=== PATIENT | male | born 1965 | race Caucasian/White ===

== ENCOUNTER 2018-08-18 19:56 | Inpatient (IN) | payer SELFPAY ==
[2018-08-18] VITALS (7 sets, daily range): BP systolic 103–154; BP diastolic 71–92; PULSE 71–95; RESP 18–24; TEMP 37–38; O2SAT 95–97; BMI 33.4
--- NOTE | 2018-08-18 20:07 | DI.CT.S_ITS ---
PROCEDURE: CT HEAD/BRAIN WO CON INDICATIONS: fall 30 ft from tree TECHNIQUE: Noncontrast 4.5 mm thick angled axial sections acquired from the foramen magnum to the vertex, with coronal and sagittal reformats. For radiation dose reduction, the following was used: automated exposure control, adjustment of mA and/or kV according to patient size. COMPARISON: None. FINDINGS: Image quality: Excellent. CSF spaces: Basal cisterns are patent. No extra-axial fluid collections. Ventricles are normal in size and shape. Brain: No midline shift. No intracranial masses or hemorrhage. Fields-white matter interface is normal. Skull and face: Calvarium and visualized facial bones are intact, without suspicious lesions. Sinuses: Visualized sinuses and mastoids are clear. IMPRESSION: No acute intracranial disease process. Dictated by: Jes Armijo MD, PhD on 08/18/2018 at 21:03 Approved by: Jes Armijo MD, PhD on 08/18/2018 at 21:05
--- NOTE | 2018-08-18 20:07 | DI.CT.S_ITS ---
PROCEDURE: CT CERVICAL SPINE WO CON INDICATIONS: fall 30 ft from tree TECHNIQUE: Noncontrast 3 mm thick sections acquired from the skull base to the T4 level. Sagittal and coronal reformats were then constructed. For radiation dose reduction, the following was used: automated exposure control, adjustment of mA and/or kV according to patient size. COMPARISON: None. FINDINGS: Image quality: Excellent. Bones: No acute fractures or dislocations. Patient status post ORIF of left mandible fracture. Visualized superior ribs are intact. Soft tissues: Prevertebral soft tissues are normal in thickness. No paravertebral hematomas. No apical pneumothoraces. IMPRESSION: No fracture. No acute osseous lesion. If there are persistent symptoms or continued clinical suspicion for pathology, then MRI should be considered for further evaluation. Dictated by: Jes Armijo MD, PhD on 08/18/2018 at 21:00 Approved by: Jes Armijo MD, PhD on 08/18/2018 at 21:03
--- NOTE | 2018-08-18 20:07 | DI.RAD.S_ITS ---
PROCEDURE: XR CHEST 1V INDICATIONS: fall 30ft from tree TECHNIQUE: One view of the chest was acquired. COMPARISON: None. FINDINGS: Surgical changes and devices: None. Lungs and pleura: Lungs are clear. No pleural effusions or pneumothorax. Mediastinum: Mediastinal contours appear normal. Heart size is normal. Bones and chest wall: No suspicious bony lesions. Overlying soft tissues appear unremarkable. IMPRESSION: No acute cardiopulmonary disease process. Dictated by: Jes Armijo MD, PhD on 08/18/2018 at 20:36 Approved by: Jes Armijo MD, PhD on 08/18/2018 at 20:36
--- NOTE | 2018-08-18 20:07 | DI.CT.S_ITS ---
PROCEDURE: CT CHEST ABD PEL W CON INDICATIONS: fall 30 ft from tree TECHNIQUE: After the administration of intravenous contrast, 5 mm thick sections acquired from the lung apices to the symphysis. 2.5 mm thick coronal and sagittal reformats were acquired. Additional 7 mm thick coronal maximum intensity projection (MIP) reformats acquired through the lungs. Optional 10-minute delayed imaging may be performed from the kidneys to the bladder. For radiation dose reduction, the following was used: automated exposure control, adjustment of mA and/or kV according to patient size. COMPARISON: None. FINDINGS: Image quality: Excellent. CHEST: Lungs: No pulmonary contusions or lacerations. Scattered atelectasis noted in the lungs. No pneumothorax or hemothorax. Central and peripheral airways appear patent and normal in caliber. Mediastinum: No mediastinal hematomas. Heart size is normal. No pericardial effusion. Thoracic aorta and pulmonary arteries demonstrate normal size and enhancement. No mediastinal or hilar adenopathy. Esophagus is normal in caliber. No hiatal hernia. Chest wall: No rib fractures. No subcutaneous emphysema. No axillary or supraclavicular adenopathy. Thyroid gland is within normal limits. ABDOMEN: Solid organs: Liver is normal in size and enhancement, without lacerations. Diffuse fatty infiltration of the liver. Gallbladder is within normal limits. Biliary system is non-dilated. Pancreas enhances normally, without transection. Spleen is normal in size and enhancement, without lacerations. No adrenal hematomas. Both kidneys enhance normally, without hydronephrosis or lacerations. Peritoneum and bowel: No free fluid or air. Unenhanced bowel loops demonstrate normal wall thickness and caliber. Nodes and vessels: No retroperitoneal or mesenteric adenopathy. Aorta and inferior vena cava are normal in size and enhancement. Miscellaneous: No ventral hernias. PELVIS: Genitourinary: Bladder wall thickness is normal. Miscellaneous: No inguinal hernias or adenopathy. Bones: Pelvic ring and hip joints appear intact. Acute L1 and L2 compression fractures are noted. Fracture lucencies involving anterior and middle columns. L1 fracture lucencies extend into the right pedicle and the posterior cortex. Spine degenerative disease and facet arthropathy noted. IMPRESSION: 1. L1 and L2 compression fractures. 2. No evidence of solid organ laceration. 3. No pulmonary contusion or pneumothorax. Dictated by: Jes Armijo MD, PhD on 08/18/2018 at 21:05 Approved by: Jes Armijo MD, PhD on 08/18/2018 at 21:14
--- NOTE | 2018-08-18 20:07 | DI.RAD.S_ITS ---
PROCEDURE: XR PELVIS 1-2V INDICATIONS: fall 30 ft from tree TECHNIQUE: One view(s) of the pelvis acquired. COMPARISON: None. FINDINGS: Bones: No fractures or dislocations. No suspicious bony lesions. Soft tissues: Visualized bowel gas pattern is normal. No suspicious soft tissue calcifications. IMPRESSION: No fracture. No osseous lesion. If there are persistent symptoms or clinical suspicion for pathology, then repeat radiographs or advanced imaging (CT, MRI or bone scan) should be considered for further evaluation. Dictated by: Jes Armijo MD, PhD on 08/18/2018 at 20:36 Approved by: Jes Armijo MD, PhD on 08/18/2018 at 20:37
--- NOTE | 2018-08-18 20:08 | DI.RAD.S_ITS ---
PROCEDURE: XR WRIST LT MIN 3V INDICATIONS: fall deformity TECHNIQUE: 4 views of the wrist were acquired. COMPARISON: None. FINDINGS: Bones: Linear lucency traverses the mid/proximal scaphoid. Scaphoid view: Linear lucency traverses the mid/proximal scaphoid. Soft tissues: No suspicious soft tissue calcifications. IMPRESSION: Minimally displaced scaphoid fracture. Concordant with preliminary interpretation. Dictated by: Tyrell Mcgovern M.D. on 08/19/2018 at 7:19 Approved by: Tyrell Mcgovern M.D. on 08/19/2018 at 7:20
--- NOTE | 2018-08-18 20:15 | ED_ITS ---
HPI - Trauma General Chief Complaint: Trauma Stated Complaint: Fall 30ft from tree Time Seen by Provider: 08/18/18 20:06 Source: patient and family Mode of arrival: wheelchair Limitations: no limitations History of Present Illness HPI narrative: Patient is a 53-year-old male who presents after a 20-30ft fall from a tree at last evening. 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 No loss of consciousness. He says he went to bed immediately. Complaining more today of left wrist pain and some mild back pain. He is having significant pain while walking but is able to walk. No urinary incontinence. He denies any anti-platelet or anticoagulation medication. He denies any nausea persistent vomiting. MD complaint: fall Onset (ago): day(s) (1) Loss of Consciousness: no Severity: moderate Related Data Home Medications Medication Instructions Recorded Confirmed No Known Home Medications 08/18/18 08/18/18 Allergies Allergy/AdvReac Type Severity Reaction Status Date / Time No Known Drug Allergies Allergy Verified 08/18/18 20:34 Review of Systems Review of Systems ROS Unobtainable: All systems reviewed & are unremarkable except as noted in HPI and below Constitutional Denies chills, Denies fever(s), Denies lethargy and Denies weakness Eyes Denies change in vision, Denies eye discharge, Denies irritation and Denies loss of vision ENT Ears, Nose, Mouth, and Throat: Denies vertigo Cardiovascular Denies chest pain, Denies syncope, Denies irregular heart rhythm, Denies lightheadedness, Denies palpitations, Denies dyspnea, Denies dyspnea on exertion and Denies orthopnea Respiratory Denies cough, Denies dyspnea, Denies dyspnea on exertion and Denies wheezing Gastrointestinal Gastrointestinal: Denies abdominal pain, Denies change in bowel habits, Denies diarrhea, Denies nausea and Denies vomiting Genitourinary Denies hematuria, Denies flank pain, Denies urinary incontinence and Denies urinary urgency Musculoskeletal Reports as per HPI Integumentary/Breasts Denies new lesions and Denies skin pain Neurologic Denies confusion, Denies vertigo, Denies syncope, Denies loss of vision and Denies weakness Psychiatric Denies confusion Endocrine Denies palpitations Allergic/Immunologic Denies wheezing [facility] Medical History Alcohol dependence (Chronic) Marijuana use, continuous (Chronic) Osteoarthritis, multiple sites (Chronic) Presence of mandibular implant (Chronic) Surgical History S/P appendectomy (Acute) Family History (Updated 08/19/18 @ 02:24 by STUART Lazaro) Mother Heart disease Ovarian cancer Breast cancer Father No known health problems Brother Heart disease Myocardial infarction Brother Gunshot injury Social History household members: none Smoking Status: Current some day smoker alcohol intake: current Family History Mother Heart disease Ovarian cancer Breast cancer Father No known health problems Brother Heart disease Myocardial infarction Brother Gunshot injury Social History household members: none Smoking Status: Current some day smoker alcohol intake: current Exam Initial Vital Signs Initial Vital Signs: Vital Signs Temperature 100.4 F H 08/18/18 20:05 Pulse Rate 80 08/18/18 20:05 Respiratory Rate 24 08/18/18 20:05 Blood Pressure 154/83 H 08/18/18 20:05 Pulse Oximetry 97 08/18/18 20:05 GENERAL: Well-appearing, well-nourished and in no acute distress. HEENT: Head normocephalic,, EOMI, pupils reactive, face symmetric, moist mucous membranes, no hemotympanum, no septal hematoma NECK: C-collar placed immediately in the emergency department although it is nontender. CARDIOVASCULAR: Regular rate and rhythm without murmurs, rubs or gallops. RESPIRATORY: Breath sounds equal bilaterally, no wheezes rales or rhonchi. No crepitations, no subcutaneous air, chest is nontender, no signs of trauma ABDOMEN: Soft, nontender. Normoactive bowel sounds all 4 quadrants. No guarding or rebound. BACK: Tender lower thoracic area and L1 area. No contusions midline tenderness. PELVIS: stable. : Testicles are nontender not non erythematous no hernia appreciated EXTREMITIES: Normal range of motion, no clubbing or edema. Right upper extremity: [Within normal limits] Left upper extremity: Book is used for splint on her wrist. Right lower extremity: [Within normal limits] Left lower extremity:[Within normal limits] NEUROLOGICAL: Cranial nerves II through XII grossly intact. Normal gait and speech. SKIN: Abrasion right upper quadrant, bilateral flank contusions Course Orders Ordered: ED Orders 08/18/18 20:06 EKG-12 Lead Stat 08/18/18 20:07 CT cervical spine wo con Stat CT chest abd pel w con Stat CT head/brain wo con Stat XR chest 1V Stat XR pelvis 1-2V Stat 08/18/18 20:08 XR wrist LT min 3V Stat 08/18/18 20:10 Amylase Stat Complete Blood Count AUTO DIFF Stat Comprehensive Metabolic Panel Stat Ethanol (ETOH) Stat Lipase Stat Partial Thromboplastin Time Stat Prothrombin Time INR Stat Type and Screen Stat 08/18/18 20:18 XR shoulder LT min 2V Stat 08/18/18 23:33 Urine Microscopic Stat 08/18/18 23:50 Consult to General Surgery Stat Consult to Orthopedic Surgery Stat 08/19/18 01:09 Magnesium Urgent 08/19/18 01:10 Consult to Discharge Planning Routine 08/19/18 01:11 Consult to Occupational Therapy Evaluate & Treat Consult to Physical Therapy Evaluate & Treat 08/19/18 01:17 Troponin I Urgent 08/19/18 01:53 Creatine Kinase Urgent Acetaminophen (Tylenol) 650 mg PO Q6HR PRN PRN Reason: As Needed for Fever/Mild Pain Last Admin: 08/19/18 01:54 Dose: 650 mg Hydromorphone HCl (Dilaudid) 0.5 mg IV Q8H PRN PRN Reason: Breakthrough Pain Last Admin: 08/19/18 02:28 Dose: 0.5 mg Sodium Chloride (Normal Saline 0.9%) 1,000 mls @ 150 mls/hr IV CONT RAINA Last Admin: 08/18/18 20:40 Dose: 150 mls/hr Ibuprofen (Advil) 600 mg PO Q6HR PRN PRN Reason: As Needed for Fever/Mild Pain Oxycodone HCl (Percolone) 5 mg PO Q4HR PRN PRN Reason: Pain, Severe (7-10) Last Admin: 08/19/18 02:27 Dose: 5 mg Discontinued Medications Diphtheria/Tetanus/Acell Pertussis (Adacel) 0.5 ml IM .ONCE ONE Stop: 08/18/18 20:39 Last Admin: 08/18/18 20:39 Dose: 0.5 ml Hydromorphone HCl (Dilaudid) 0.5 mg IV NOW ONE Stop: 08/18/18 20:07 Last Admin: 08/18/18 20:17 Dose: 0.5 mg Hydromorphone HCl (Dilaudid) 0.5 mg IV NOW ONE Stop: 08/18/18 22:27 Last Admin: 08/18/18 22:28 Dose: 0.5 mg Hydromorphone HCl (Dilaudid) 0.5 mg IV NOW ONE Stop: 08/18/18 23:54 Last Admin: 08/19/18 00:10 Dose: 0.5 mg Potassium Chloride (Potassium Chloride) 40 meq PO NOW ONE Stop: 08/19/18 02:29 Consultations Consultation #1: Glory, will consult. Recommend ortho consult for L!, L2 compression fractures. Admit to medicine Time: 23:30 Consultation #2: Dr. Ramos will consult for compression fractures Time: 23:33 Vital Signs - 8 hr 08/18/18 20:05 08/18/18 20:37 08/18/18 20:49 Temperature 100.4 F H 100.4 F H Pulse Rate 80 80 95 H Respiratory Rate 24 24 22 Blood Pressure 154/83 H 154/83 H Blood Pressure [Right Arm] 152/83 H Pulse Oximetry 97 97 95 08/18/18 21:03 08/18/18 21:14 08/18/18 21:40 Temperature Pulse Rate 71 73 79 Respiratory Rate 23 18 24 Blood Pressure Blood Pressure [Right Arm] 149/86 H 141/92 H 138/86 Pulse Oximetry 95 95 95 08/18/18 22:31 08/19/18 00:14 08/19/18 00:35 Temperature 98.6 F 98.4 F Pulse Rate 78 77 80 Respiratory Rate 22 23 16 Blood Pressure 153/100 H Blood Pressure [Right Arm] 103/71 132/72 Pulse Oximetry 96 94 92 08/19/18 01:15 08/19/18 01:57 Temperature Pulse Rate 85 Respiratory Rate Blood Pressure 132/86 Blood Pressure [Right Arm] Pulse Oximetry 96 MDM - Trauma Lab Data Attestation: I reviewed the patient's lab results. Result diagrams: 08/18/18 20:10 08/18/18 20:10 Lab Results 08/18/18 08/18/18 08/18/18 Range/Units 20:10 20:10 20:10 WBC 11.6 H (4.5-11.0) X10^3/uL RBC 4.59 (4.5-5.9) X10^6/uL Hgb 16.1 (13.5-17.5) g/dL Hct 45.3 (41-53) % MCV 98.7 (80-100) fL MCH 35.0 H (26-34) PG MCHC 35.5 (30-36) % RDW 13.8 (11.6-14.8) % Plt Count 274 (150-400) X10^3/uL Neut % (Auto) 68.5 (50-75) % Lymph % (Auto) 21.4 L (25-40) % [place] % (Auto) 8.8 (3-14) % Eos % (Auto) 0.7 L (2-4) % Baso % (Auto) 0.6 (0-2) % Neut # (Auto) 7900 H (2801-5373) /uL Lymph # (Auto) 2500 (2256-0336) /uL [place] # (Auto) 1000 H (0-900) /uL Eos # (Auto) 100 (0-450) /uL Baso # (Auto) 100 (0-100) /uL PT 13.0 H (10.1-12.7) SECONDS INR 1.1 (0.9-1.3) APTT 30 (26.4-36.2) SECONDS Sodium 138 (137-145) mmol/L Potassium 3.3 L (3.4-5.1) mmol/L Chloride 102 (98-107) mmol/L Carbon Dioxide 26 (22-32) mmol/L BUN 16 (9-20) mg/dL Creatinine 0.90 (0.66-1.25) mg/dL Estimated GFR > 60.0 (>60) mL/min BUN/Creatinine Ratio 17.8 (6-22) Glucose 158 H (70-100) mg/dL Calcium 9.2 (8.4-10.2) mg/dL Magnesium (1.6-2.3) mg/dL Total Bilirubin 1.9 H (0.2-1.3) mg/dL AST 55 (17-59) IU/L ALT 35 (21-72) IU/L Alkaline Phosphatase 84 (38-126) U/L Total Creatine Kinase (55-170) U/L Troponin I (0.01-0.034) ng/mL Total Protein 7.8 (6.3-8.2) g/dL Albumin 4.5 (3.5-5.0) g/dL Globulin 3.3 (1.7-4.1) g/dL Albumin/Globulin Ratio 1.4 (1.0-2.8) Amylase 72 (30-110) U/L Lipase 50 (23-300) U/L Urine RBC (0-5/HPF) Urine WBC (0-5/HPF) Urine Bacteria (None) Ur Culture Indicated? Ethyl Alcohol < 10 mg/dL Blood Type Antibody Screen 08/18/18 08/18/18 08/18/18 Range/Units 20:10 20:10 20:10 WBC (4.5-11.0) X10^3/uL RBC (4.5-5.9) X10^6/uL Hgb (13.5-17.5) g/dL Hct (41-53) % MCV (80-100) fL MCH (26-34) PG MCHC (30-36) % RDW (11.6-14.8) % Plt Count (150-400) X10^3/uL Neut % (Auto) (50-75) % Lymph % (Auto) (25-40) % [place] % (Auto) (3-14) % Eos % (Auto) (2-4) % Baso % (Auto) (0-2) % Neut # (Auto) (6365-5447) /uL Lymph # (Auto) (9148-8277) /uL [place] # (Auto) (0-900) /uL Eos # (Auto) (0-450) /uL Baso # (Auto) (0-100) /uL PT (10.1-12.7) SECONDS INR (0.9-1.3) APTT (26.4-36.2) SECONDS Sodium (137-145) mmol/L Potassium (3.4-5.1) mmol/L Chloride (98-107) mmol/L Carbon Dioxide (22-32) mmol/L BUN (9-20) mg/dL Creatinine (0.66-1.25) mg/dL Estimated GFR (>60) mL/min BUN/Creatinine Ratio (6-22) Glucose (70-100) mg/dL Calcium (8.4-10.2) mg/dL Magnesium 2.0 (1.6-2.3) mg/dL Total Bilirubin (0.2-1.3) mg/dL AST (17-59) IU/L ALT (21-72) IU/L Alkaline Phosphatase (38-126) U/L Total Creatine Kinase (55-170) U/L Troponin I < 0.012 (0.01-0.034) ng/mL Total Protein (6.3-8.2) g/dL Albumin (3.5-5.0) g/dL Globulin (1.7-4.1) g/dL Albumin/Globulin Ratio (1.0-2.8) Amylase (30-110) U/L Lipase (23-300) U/L Urine RBC (0-5/HPF) Urine WBC (0-5/HPF) Urine Bacteria (None) Ur Culture Indicated? Ethyl Alcohol mg/dL Blood Type O Positive Antibody Screen Negative 08/18/18 08/18/18 Range/Units 20:10 23:33 WBC (4.5-11.0) X10^3/uL RBC (4.5-5.9) X10^6/uL Hgb (13.5-17.5) g/dL Hct (41-53) % MCV (80-100) fL MCH (26-34) PG MCHC (30-36) % RDW (11.6-14.8) % Plt Count (150-400) X10^3/uL Neut % (Auto) (50-75) % Lymph % (Auto) (25-40) % [place] % (Auto) (3-14) % Eos % (Auto) (2-4) % Baso % (Auto) (0-2) % Neut # (Auto) (0701-2434) /uL Lymph # (Auto) (0900-0802) /uL [place] # (Auto) (0-900) /uL Eos # (Auto) (0-450) /uL Baso # (Auto) (0-100) /uL PT (10.1-12.7) SECONDS INR (0.9-1.3) APTT (26.4-36.2) SECONDS Sodium (137-145) mmol/L Potassium (3.4-5.1) mmol/L Chloride (98-107) mmol/L Carbon Dioxide (22-32) mmol/L BUN (9-20) mg/dL Creatinine (0.66-1.25) mg/dL Estimated GFR (>60) mL/min BUN/Creatinine Ratio (6-22) Glucose (70-100) mg/dL Calcium (8.4-10.2) mg/dL Magnesium (1.6-2.3) mg/dL Total Bilirubin (0.2-1.3) mg/dL AST (17-59) IU/L ALT (21-72) IU/L Alkaline Phosphatase (38-126) U/L Total Creatine Kinase 969 H (55-170) U/L Troponin I (0.01-0.034) ng/mL Total Protein (6.3-8.2) g/dL Albumin (3.5-5.0) g/dL Globulin (1.7-4.1) g/dL Albumin/Globulin Ratio (1.0-2.8) Amylase (30-110) U/L Lipase (23-300) U/L Urine RBC 0-1/hpf (0-5/HPF) Urine WBC 0-1/hpf (0-5/HPF) Urine Bacteria None seen (None) Ur Culture Indicated? Cult not indicated Ethyl Alcohol mg/dL Blood Type Antibody Screen Urine Dip Bedside Urine Glucose Negative Bedside Urine Bilirubin + 1 Bedside Urine Ketone - Negative Urine Specific [place] 1.005 Bedside Urine Occult Blood - Negative Bedside Urine pH 6.5 Bedside Urine Protein ++ 100 Bedside Urine Urobilinogen 1+ 2mg Bedside Urine Nitrite - Negative Bedside Urine Leukocytes +/- [address] scan - chest: Radiologist's impression: PROCEDURE: CT CHEST ABD PEL W CON INDICATIONS: fall 30 ft from tree TECHNIQUE: After the administration of intravenous contrast, 5 mm thick sections acquired from the lung apices to the symphysis. 2.5 mm thick coronal and sagittal reformats were acquired. Additional 7 mm thick coronal maximum intensity projection (MIP) reformats acquired through the lungs. Optional 10-minute delayed imaging may be performed from the kidneys to the bladder. For radiation dose reduction, the following was used: automated exposure control, adjustment of mA and/or kV according to patient size. COMPARISON: None. FINDINGS: Image quality: Excellent. CHEST: Lungs: No pulmonary contusions or lacerations. Scattered atelectasis noted in the lungs. No pneumothorax or hemothorax. Central and peripheral airways appear patent and normal in caliber. Mediastinum: No mediastinal hematomas. Heart size is normal. No pericardial effusion. Thoracic aorta and pulmonary arteries demonstrate normal size and enhancement. No mediastinal or hilar adenopathy. Esophagus is normal in caliber. No hiatal hernia. Chest wall: No rib fractures. No subcutaneous emphysema. No axillary or supraclavicular adenopathy. Thyroid gland is within normal limits. ABDOMEN: Solid organs: Liver is normal in size and enhancement, without lacerations. Diffuse fatty infiltration of the liver. Gallbladder is within normal limits. Biliary system is non-dilated. Pancreas enhances normally, without transection. Spleen is normal in size and enhancement, without lacerations. No adrenal hematomas. Both kidneys enhance normally, without hydronephrosis or lacerations. Peritoneum and bowel: No free fluid or air. Unenhanced bowel loops demonstrate normal wall thickness and caliber. Nodes and vessels: No retroperitoneal or mesenteric adenopathy. Aorta and inferior vena cava are normal in size and enhancement. Miscellaneous: No ventral hernias. PELVIS: Genitourinary: Bladder wall thickness is normal. Miscellaneous: No inguinal hernias or adenopathy. Bones: Pelvic ring and hip joints appear intact. Acute L1 and L2 compression fractures are noted. Fracture lucencies involving anterior and middle columns. L1 fracture lucencies extend into the right pedicle and the posterior cortex. Spine degenerative disease and facet arthropathy noted. IMPRESSION: 1. L1 and L2 compression fractures. 2. No evidence of solid organ laceration. 3. No pulmonary contusion or pneumothorax. Dictated by: Jes Armijo MD, PhD on 08/18/2018 at 21:05 CT scan - head: Radiologist's impression: PROCEDURE: CT HEAD/BRAIN WO CON INDICATIONS: fall 30 ft from tree TECHNIQUE: Noncontrast 4.5 mm thick angled axial sections acquired from the foramen magnum to the vertex, with coronal and sagittal reformats. For radiation dose reduction, the following was used: automated exposure control, adjustment of mA and/or kV according to patient size. COMPARISON: None. FINDINGS: Image quality: Excellent. CSF spaces: Basal cisterns are patent. No extra-axial fluid collections. Ventricles are normal in size and shape. Brain: No midline shift. No intracranial masses or hemorrhage. Fields-white matter interface is normal. Skull and face: Calvarium and visualized facial bones are intact, without suspicious lesions. Sinuses: Visualized sinuses and mastoids are clear. IMPRESSION: No acute intracranial disease process. Dictated by: Jes Armijo MD, PhD on 08/18/2018 at 21:03 ct cervical: Radiologist's impression: PROCEDURE: CT CERVICAL SPINE WO CON INDICATIONS: fall 30 ft from tree TECHNIQUE: Noncontrast 3 mm thick sections acquired from the skull base to the T4 level. Sagittal and coronal reformats were then constructed. For radiation dose reduction, the following was used: automated exposure control, adjustment of mA and/or kV according to patient size. COMPARISON: None. FINDINGS: Image quality: Excellent. Bones: No acute fractures or dislocations. Patient status post ORIF of left mandible fracture. Visualized superior ribs are intact. Soft tissues: Prevertebral soft tissues are normal in thickness. No paravertebral hematomas. No apical pneumothoraces. IMPRESSION: No fracture. No acute osseous lesion. If there are persistent symptoms or continued clinical suspicion for pathology, then MRI should be considered for further evaluation. Dictated by: Jes Armijo MD, PhD on 08/18/2018 at 21:00 Chest x-ray: Radiologist's impression: PROCEDURE: XR CHEST 1V INDICATIONS: fall 30ft from tree TECHNIQUE: One view of the chest was acquired. COMPARISON: None. FINDINGS: Surgical changes and devices: None. Lungs and pleura: Lungs are clear. No pleural effusions or pneumothorax. Mediastinum: Mediastinal contours appear normal. Heart size is normal. Bones and chest wall: No suspicious bony lesions. Overlying soft tissues appear unremarkable. IMPRESSION: No acute cardiopulmonary disease process. Dictated by: Jes Armijo MD, PhD on 08/18/2018 at 20:36 pelvis xr: Radiologist's impression: PROCEDURE: XR PELVIS 1-2V INDICATIONS: fall 30 ft from tree TECHNIQUE: One view(s) of the pelvis acquired. COMPARISON: None. FINDINGS: Bones: No fractures or dislocations. No suspicious bony lesions. Soft tissues: Visualized bowel gas pattern is normal. No suspicious soft tissue calcifications. IMPRESSION: No fracture. No osseous lesion. If there are persistent symptoms or clinical suspicion for pathology, then repeat radiographs or advanced imaging (CT, MRI or bone scan) should be considered for further evaluation. Dictated by: Jes Armijo MD, PhD on 08/18/2018 at 20:36 Approved by: Jes Armijo MD, PhD on 08/18/2018 at 20:37 left wrist: Attestation: I personally reviewed and interpreted this imaging study as follows: My impression: no racture Left shoulder: Attestation: I personally reviewed and interpreted this imaging study as follows: My impression: Questionable old avulsion fracture on distal clavicle ECG Data Attestation: I personally reviewed and interpreted this ECG as follows: Prior ECG tracings: not available for review Interpretation: Sinus rhythm rate [address] changes no T-wave inversion. MDM Narrative Medical decision making narrative: The patient overall is stable. Pain controlled with Dilaudid. Questionable old versus new avulsion fracture over clavicle seen on x-ray only. He has some mild tenderness. However complains of or wrist pain. Wrist is swollen and empirically placed in a Velcro splint. Patient has ambulation trial it takes quite a bit to get him out of bed. His pain from his back is very out of control. He is able to stand and take a few steps and gets to the door way however pain becomes quite intense. He lives alone. Patient will be admitted for pain control. Discharge Plan Departure Patient Disposition: Admitted as Observation Clinical Impression: Compression fracture of L1 vertebra Qualifiers: Encounter type: initial encounter Qualified Code(s): S32.010A - Wedge compression fracture of first lumbar vertebra, initial encounter for closed fracture Compression fracture of L2 Qualifiers: Encounter type: initial encounter Qualified Code(s): S32.020A - Wedge compression fracture of second lumbar vertebra, initial encounter for closed fracture Left wrist sprain Qualifiers: Encounter type: initial encounter Qualified Code(s): S63.502A - Unspecified sprain of left wrist, initial encounter Discharge Date/Time: 08/19/18 00:29 Interventions: ED Discharge Assessment Last Done: 08/19/18 01:32 Admit Date/Time: 08/19/18 00:03 Admit Provider: Reji Perez
[2018-08-18] MEDS: HYDROMORPHONE 1 MG INJ 0.5 MG IV ×2 (20:17→22:28)
--- NOTE | 2018-08-18 20:18 | DI.RAD.S_ITS ---
PROCEDURE: XR SHOULDER LT MIN 2V INDICATIONS: pain TECHNIQUE: 2 views of the shoulder were acquired. COMPARISON: [facility], CR, XR CHEST 1V, 08/18/2018, 20:09. FINDINGS: Bones: No acute fractures or dislocations. There is a well-corticated bony fragment adjacent to the distal clavicle. No suspicious bony lesions. Visualized ribs appear intact. Soft tissues: No suspicious soft tissue calcifications. IMPRESSION: No acute fracture. No osseous lesion. If symptoms or clinical suspicion for pathology persists, repeat plain films, or advanced imaging (CT, bone scan, or MRI) may be helpful for further assessment. Dictated by: Tyrell Mcgovern M.D. on 08/19/2018 at 7:18 Approved by: Tyrell Mcgovern M.D. on 08/19/2018 at 7:19
--- NOTE | 2018-08-18 20:20 | PC.NURSE ---
Pt medicated with dilaudid for pain, now to CT with RN and manager cardiac cath
[2018-08-18 20:28] LABS: Add Manual Diff / Slide Review NO; Basophils Absolute Auto 100 /uL (0-100); Basophils Percent Auto 0.6 % (0-2); Eosinophils Absolute Auto 100 /uL (0-450); Eosinophils Percent Auto 0.7 % (2-4); Hematocrit 45.3 % (41-53); Hemoglobin 16.1 g/dL (13.5-17.5); Lymphocytes Absolute Auto 2500 /uL (1100-4500); Lymphocytes Percent Auto 21.4 % (25-40); Mean Corpuscular HGB Conc 35.5 % (30-36); Mean Corpuscular Volume 98.7 fL (80-100); Monocytes Absolute Auto 1000 /uL (0-900); Monocytes Percent Auto 8.8 % (3-14); Neutrophils Absolute Auto 7900 /uL (1500-7000); Neutrophils Percent Auto 68.5 % (50-75); Platelet Count 274 X10^3/uL (150-400); Red Blood Cell Count 4.59 X10^6/uL (4.5-5.9); Red Cell Distribution Width 13.8 % (11.6-14.8); White Blood Cell Count 11.6 X10^3/uL (4.5-11.0)
[2018-08-18 20:36] LABS: INR 1.1 (0.9-1.3)
[2018-08-18 20:38] LABS: PTT Partial Thromboplastin Tim 30 SECONDS (26.4-36.2)
[2018-08-18] MEDS: TET,DIPH,PERTUSS(ACELL),VAC/PF 0.5 ML SYRINGE IM (20:39)
[2018-08-18 20:40] LABS: Alanine Aminotransferase 35 IU/L (21-72); Albumin 4.5 g/dL (3.5-5.0); Albumin Globulin Ratio 1.4 (1.0-2.8); Alkaline Phosphatase 84 U/L (38-126); Amylase 72 U/L (30-110); Aspartate Aminotransferase 55 IU/L (17-59); BUN Creatinine Ratio 17.8 (6-22); Bilirubin Total 1.9 mg/dL (0.2-1.3); Blood Urea Nitrogen 16 mg/dL (9-20); Calcium 9.2 mg/dL (8.4-10.2); Carbon Dioxide 26 mmol/L (22-32); Chloride 102 mmol/L (98-107); Estimated Glomerular Filt Rate > 60.0 mL/min (>60); Ethanol (ETOH) < 10 mg/dL; Globulin 3.3 g/dL (1.7-4.1); Glucose 158 mg/dL (70-100); HEMOLYSIS < 15 (0-50); Lipase 50 U/L (23-300); Potassium 3.3 mmol/L (3.4-5.1); Sodium 138 mmol/L (137-145); Total Protein 7.8 g/dL (6.3-8.2)
[2018-08-18] MEDS: SODIUM CHLORIDE 0.9% 1,000 ML 150 ML IV (20:40)
--- NOTE | 2018-08-18 21:14 | PC.NURSE ---
C-Collar removed with ok from Dr Han. Pt resting comfortably with family at bedside
--- NOTE | 2018-08-18 22:33 | PC.NURSE ---
Pt c/o increasing pain to back and groun, 08/13. Dr Han notified, verbal order for repeat dose 0.5mg dilaudid IV received. Pt medicated, reports relief, now rates pain 04/15.
--- NOTE | 2018-08-18 23:10 | PC.NURSE ---
Pt assisted to stand with max 2 person assist and severe pain. Pt was able to stand at bedside and ambulate to doorway. Rated pain 6/10. Very difficult for pt to mobilize. Plan of care discussed with Dr Han, pt, and son. Pt encouraged to stay in hospital tonight for pain management. Pt and son agreeable. Pt assisted to bathroom via WC.
[2018-08-18 23:35] LABS: Bacteria Urine None Seen
[2018-08-18 23:41] LABS: Culture Indicated Urine Cult Not Indicated; RBC Urine 0-1/HPF (0-5/HPF); WBC Urine 0-1/HPF (0-5/HPF)
[2018-08-19] VITALS (16 sets, daily range): BP systolic 119–153; BP diastolic 67–100; PULSE 74–85; RESP 16–23; TEMP 36.7–37.2; O2SAT 91–96; BMI 33.4
[2018-08-19] MEDS: HYDROMORPHONE 1 MG INJ 0.5 MG IV (00:10)
--- NOTE | 2018-08-19 01:25 | PC.NURSE ---
Pt. admitted from ER, arrived to the floor via stretcher and transferred to bed using slider board. Pt. in discomfort to the mid back especially with movement. Pt. prefers to lay on his right side; explained to pt. that once pain is more tolerable he needs to change position to avoid pressure sore on pressure points area. Also explained to the pt. the importance of taking deep breaths to avoid pulmonary complication such as pneumonia. Pt. verbalize understanding. Pt. instructed to call for any assistance, oriented to call light use and bed control. Urinal provided.
[2018-08-19 01:42] LABS: Troponin I < 0.012 ng/mL (0.01-0.034)
[2018-08-19] MEDS: ACETAMINOPHEN 325 MG TABLET 650 MG PO (01:54)
--- NOTE | 2018-08-19 01:54 | PM.HP.1 ---
History of Present Illness Date Patient Seen: 08/19/18 Chief complaint: Fall 30ft from tree Narrative: The patient is a 53-year-old male who presented to the ED out of concern for lower back pain. PMH is significant for marijuana use, EtOH dependence, and chronic low back pain. 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 The fall was accidental and/or unintentional. Patient reports landing onto the left aspect of torso and hip/pelvic area. Denies injury to the head. Denies loss of consciousness. Upon contact with the ground patient experienced immediate pain. He laid on the ground for approximately 30 minutes and then was able to get up on his own and ambulate to this house (40 feet). He went to bed immediately. Reports sleeping for the following 3-4 hours, thereafter remained awake and in much discomfort. He remained in bed most of the day until calming to the ED for further evaluation. Patient denies bowel and/or bladder dysfunction, dysuria, or hematuria. He does come complained of discomfort in the left groin. There is no no testicular pain. Also denies numbness, tingling, or weakness of upper and lower extremities. Note presence of pain in the left wrist and left scapular area. Denies chest pain, palpitations, dizziness, lightheadedness, and syncopal events. Denies hemoptysis and difficulty breathing. Notes pain in oral cavity. ED presentation and work-up BP 154/83, HR 80, RR 23, SpO2 97% EKG, 08/18/18 @ 2036, SR (v-rate 75), non-ischemic. Diagnostic imaging included... XR left wrist and shoulder pending XR of chest, no acute cardiopulmonary findings. CT of head, no acute intracranial pathology. CT of cervical spine, unrevealing of acute fractures or dislocations. CT of [id number] Lungs unremarkable for pulmonary contusion or lacerations. No pneumothorax or hemothorax. Central and peripheral airways patent. No mediastinal hematomas or adenopathy. No cardiomegaly. No pericardial effusion. Thoracic aorta and pulmonary arteries normal in size and enhancement. Scattered atelectasis noted. Liver normal in size and enhancement without laceration. Diffuse fatty infiltration of liver. Gallbladder WNL. Biliary system nondilated. Pancreas enhances normally w/o transection. Spleen is normal in size and enhancement, w/o laceration. No adrenal hematomas. Both kidneys enhance normally, w/o hydronephrosis or lacerations. No free fluid or air in the peritoneum. Unenhanced bowel loops demonstrate normal thickness in caliber. Pelvic ring and hip joints appear intact. Acute L1 and L2 compression fractures noted. Fracture lucencies involving anterior and middle columns. L1 fracture lucencies extend into the right pedicle and the posterior cortex. Spine degenerative disease and facet arthropathy noted. Patient History Medical History Alcohol dependence (Chronic) Marijuana use, continuous (Chronic) Osteoarthritis, multiple sites (Chronic) Presence of mandibular implant (Chronic) Surgical History S/P appendectomy (Acute) Family History Mother Heart disease Ovarian cancer Breast cancer Father No known health problems Brother Heart disease Myocardial infarction Brother Gunshot injury Social History household members: none Smoking Status: Current some day smoker alcohol intake: current Family & Social History Family History Mother Heart disease Ovarian cancer Breast cancer Father No known health problems Brother Heart disease Myocardial infarction Brother Gunshot injury Social History: household members Patient lives by himself. Resides [facility]. Prior Living Arrangements Apartment/Condo Safety & Behavioral: Feels Safe in Current Yes Environment Been Physically Hurt or No Threatened By a Person Suicidal Ideation Description None Suicide Plan Description No Plan Tobacco & Substance use: Tobacco type cannabis/marijuana Smoking Status Current some day smoker, 3x per week alcohol intake current, 2 drinks of whisky 3x/week. Admits to heavy EtOH use, intermittently throughout life. Admits to drinking 750 ml once every few months. alcohol intake frequency a few times a week Substance Use Type marijuana Social Patient is functionally independent in ADLs prior to ED presentation. He has 5 children, 2 girls and 3 boys, of variable age, ie 5 to 25. Meds Home Medications Medication Instructions Recorded Confirmed Type No Known Home Medications 08/18/18 08/18/18 History Allergies Allergy/AdvReac Type Severity Reaction Status Date / Time No Known Drug Allergies Allergy Verified 08/18/18 20:34 Review of Systems Review of Systems All systems reviewed & are unremarkable except as noted in HPI and below Exam Vital Signs (past 8 hours): - 08/18/18 20:05 08/18/18 20:37 08/18/18 20:49 Temperature 100.4 F H 100.4 F H Pulse Rate 80 80 95 H Respiratory Rate 24 24 22 Blood Pressure 154/83 H 154/83 H Blood Pressure [Right Arm] 152/83 H Pulse Oximetry 97 97 95 08/18/18 21:03 08/18/18 21:14 08/18/18 21:40 Temperature Pulse Rate 71 73 79 Respiratory Rate 23 18 24 Blood Pressure Blood Pressure [Right Arm] 149/86 H 141/92 H 138/86 Pulse Oximetry 95 95 95 08/18/18 22:31 08/19/18 00:14 08/19/18 00:35 Temperature 98.6 F 98.4 F Pulse Rate 78 77 80 Respiratory Rate 22 23 16 Blood Pressure 153/100 H Blood Pressure [Right Arm] 103/71 132/72 Pulse Oximetry 96 94 92 08/19/18 01:15 Temperature Pulse Rate 85 Respiratory Rate Blood Pressure 132/86 Blood Pressure [Right Arm] Pulse Oximetry Oxygen Delivery Method Room Air Narrative Exam Narrative: Constitutional: mild discomfort at rest (pain 3/10 reported), but no overt distress cooperative, appears older than stated age, BMI 32.6 Neurologic: alert, oriented x3, GCS 15 no focal upper or lower extremity weakness, strength equal b/l no numbness or decreased sensation in extremities no facial asymmetry speech intact w/o aphasia or dysarthria, comprehension intact Head: NC, AT Eyes: Pupils equal and reactive, EOMI, no periorbital ecchymosis Ears: external ears normal, no otorrhea, negative for Goldstein sign / post auriclar ecchymosis Nose: external nose normal Throat: MMM, oropharynx w/o exudate, sublingual hematoma present, tongue injury Neck: no mass or lyphedemopathy, no cervical spine tenderness Chest / Respiratory: equal chest rise, unlabored respiratory effort, no tachypnea CTA upper lobes, diminished bases Heart / CV: S1S2, no murmur Abdomen / GI: round, somewhat firm, NT, ND, + BS : suprapubic tenderness, midline and left aspect; inguinofemoral pain, no testicular pain or edema Peripheral / Vascular: BLE... warm to touch, DP and PT pulses palpable, strong, no edema Left wrist, wrist and phalanx edema, warm to touch, sensation intact radial pulse palpable, wrist immobilizer present No edema of b/l lower extremities Musc: full ROM of right upper extremity, diminished ROM of LUE, palpable deformity noted B/L knee no tenderness, adequate flexion and extention B/L hips, no palpable deformity, back pain w/ straight leg rise no pelvic hematoma Skin: b/l knee dermatitis and chronic changes and skin dryness Objective Labs Result Diagrams: 08/18/18 20:10 08/18/18 20:10 Labs: Laboratory Results - last 24 hr 08/18/18 08/18/18 08/18/18 20:10 20:10 20:10 WBC 11.6 H RBC 4.59 Hgb 16.1 Hct 45.3 MCV 98.7 MCH 35.0 H MCHC 35.5 RDW 13.8 Plt Count 274 Neut % (Auto) 68.5 Lymph % (Auto) 21.4 L Dawes % (Auto) 8.8 Eos % (Auto) 0.7 L Baso % (Auto) 0.6 Neut # (Auto) 7900 H Lymph # (Auto) 2500 Dawes # (Auto) 1000 H Eos # (Auto) 100 Baso # (Auto) 100 PT 13.0 H INR 1.1 APTT 30 Sodium 138 Potassium 3.3 L Chloride 102 Carbon Dioxide 26 BUN 16 Creatinine 0.90 Estimated GFR > 60.0 BUN/Creatinine Ratio 17.8 Glucose 158 H Calcium 9.2 Magnesium Total Bilirubin 1.9 H AST 55 ALT 35 Alkaline Phosphatase 84 Troponin I Total Protein 7.8 Albumin 4.5 Globulin 3.3 Albumin/Globulin Ratio 1.4 Amylase 72 Lipase 50 Urine RBC Urine WBC Urine Bacteria Ur Culture Indicated? Ethyl Alcohol < 10 Blood Type Antibody Screen 08/18/18 08/18/18 08/18/18 20:10 20:10 20:10 WBC RBC Hgb Hct MCV MCH MCHC RDW Plt Count Neut % (Auto) Lymph % (Auto) Dawes % (Auto) Eos % (Auto) Baso % (Auto) Neut # (Auto) Lymph # (Auto) Dawes # (Auto) Eos # (Auto) Baso # (Auto) PT INR APTT Sodium Potassium Chloride Carbon Dioxide BUN Creatinine Estimated GFR BUN/Creatinine Ratio Glucose Calcium Magnesium 2.0 Total Bilirubin AST ALT Alkaline Phosphatase Troponin I < 0.012 Total Protein Albumin Globulin Albumin/Globulin Ratio Amylase Lipase Urine RBC Urine WBC Urine Bacteria Ur Culture Indicated? Ethyl Alcohol Blood Type O Positive Antibody Screen Negative 08/18/18 23:33 WBC RBC Hgb Hct MCV MCH MCHC RDW Plt Count Neut % (Auto) Lymph % (Auto) Dawes % (Auto) Eos % (Auto) Baso % (Auto) Neut # (Auto) Lymph # (Auto) Dawes # (Auto) Eos # (Auto) Baso # (Auto) PT INR APTT Sodium Potassium Chloride Carbon Dioxide BUN Creatinine Estimated GFR BUN/Creatinine Ratio Glucose Calcium Magnesium Total Bilirubin AST ALT Alkaline Phosphatase Troponin I Total Protein Albumin Globulin Albumin/Globulin Ratio Amylase Lipase Urine RBC 0-1/hpf Urine WBC 0-1/hpf Urine Bacteria None seen Ur Culture Indicated? Cult not indicated Ethyl Alcohol Blood Type Antibody Screen Assessment & Plan Assessment & Plan narrative: L1-L2 compression fracture, acute, active, present on admission, active Suspected to be in the setting of trauma (ie fall from a height of 30 ft) - Orthopedic surgery consulted in ED - Neurovascular checks of b/l lower extremities - Bedrest overnight, re-evaluate activity status in A.M. (prolonged bedrest to be avoided and early mobilization is ideal) - Consult PT / OT - Pain control w/ tylenol, ibuprofen, and oxy IR. Will consider dilaudid for breakthrough pain. 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 for back support - Consult d/c planning to determine if patient is able to pursue outpatient physical therapy - VTE prophylaxis Intractable lumbar pain, acute, present on admission, active - tylenol, ibuprofen and oxy IR - bowel regimen prn Fall from a height greater than 20 feet, accidental / non-intentional, present on admission, active - case discussed in ED w/ orthopedic and general surgery, consults in place - tele monitoring x 48 hours, then re-evaluate or d/c - add to original lab trop and ck level - monitor for airway, breathing / ventilation, circulation compromise - neurovascular checks Q4H - IVF x12 hours, then re-evaluate need for further hydration - received tetnus vaccine in ED Left wrist pain, acute, present on admission, active suspected to be in the setting of traumatic injury - orthopedic surgery consulted - wrist xray pending, to be followed - pain control w/ analgesics, ice application prn - continue wrist split - neurovascular checks Q4H Left shoulder pain, acute, present on admission, active suspected to be in the setting of traumatic injury - orthopedic surgery consulted - shoulder x-ray pending, results to be followed - consider sholder immobilizer - pain control w/ analgesics, ice application prn - neurovacular checks Q4H Hypokalemia, acute, present on admission, active Suspected to be in the setting of decreased food and fluid intake. DDx of malabsorption in the setting of chronic EtOH use. - repeat w/ 40 mEq KCL - trend electrolytes w/ am lab - add to original lab Mg level EtOH dependence, chronic condition, present on admission, active - EtOH level not elevated, on initial presentation - MTV, thiamine - Monitor for s/s of EtOH withdrawal Code status discussed with patient. Wishes to be full code. No formal health directive in place. Designates his son Ludwin as his health proxy in an event he is unable to make decisions independently. Home medications reviewed. Patient does not take any home medications, that includes prescription and OTC. Scores GCS [place] coma scale eye opening: Spontaneous [place] coma scale verbal response: Orientated Javon coma scale motor response: Obey commands Javon coma scale total score: 15 Quality VTE Deep Vein Thrombosis/Pulmonary Embolism Present on Admission: No
[2018-08-19 02:04] LABS: Creatine Kinase 969 U/L (55-170)
[2018-08-19] MEDS: OXYCODONE IR 5 MG TABLET PO ×3 (02:27→18:12)
[2018-08-19] MEDS: HYDROMORPHONE 0.5 MG INJ IV (02:28)
--- NOTE | 2018-08-19 03:21 | PC.NURSE ---
Addendum entered by Ashley Moncada R.N. 08/19/18 03:35: Correction: Pt arrived on unit at approx 0035. Original Note: Pt arrived on unit at approx 2225. He rated his pain a 3/10 but winced and withdrew with positioning and assessment. He asked that the SCDs be placed in a while secondary to his pain. 650 mg APAP po not helpful, but patient able to sleep when given 0.5 mg Dilaudid IVP and 5mg oxycodone po. Pt LS diminished, NSR with 0 PVCs and HR in the 70's. Pt requested pulse ox be removed but was agreeable to the soft white finger attachment. A and O x 4, VSS. Pt stated he voided in the ER and bladder scan was no greater than 37 mLs.
[2018-08-19] MEDS: POTASSIUM CHLORIDE 20 MEQ/15 ML UDC 40 MEQ PO (04:01)
[2018-08-19] MEDS: SODIUM CHLORIDE 0.9% 1,000 ML 100 ML IV (06:25)
--- NOTE | 2018-08-19 08:21 | PM.CN ---
History of Present Illness Date Patient Seen: 08/19/18 Time Patient Seen: 09:57 Chief complaint: Fall 30ft from tree Reason for consult: lumbar compression fx Requesting provider: Reji Perez Narrative: 53-year-old male who fell out of a tree 2 days ago. 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 He had been working at home on 08/17/2018 at about 9:00 p.m. working on a tree. He fell approximately 30 ft, landing on his left side. He did not lose consciousness. Significant pain and he laid on the ground for about half an hour and then got up and went inside the bed. He was still having significant pain yesterday and as this was not improving he came to the emergency room yesterday evening. He was found to have compression fractures in the back and was admitted and I was consulted to see him from there. He is having pain in the left shoulder and the left wrist. He has having pain in the lower back. No pain numbness or weakness going down the legs but he does have some back pain radiation going around the pelvis. [facility] Medical History Alcohol dependence (Chronic) Marijuana use, continuous (Chronic) Osteoarthritis, multiple sites (Chronic) Presence of mandibular implant (Chronic) Surgical History S/P appendectomy (Acute) Family History Mother Heart disease Ovarian cancer Breast cancer Father No known health problems Brother Heart disease Myocardial infarction Brother Gunshot injury Social History household members: none Smoking Status: Current some day smoker alcohol intake: current Family History Mother Heart disease Ovarian cancer Breast cancer Father No known health problems Brother Heart disease Myocardial infarction Brother Gunshot injury Social History household members: none Smoking Status: Current some day smoker alcohol intake: current Meds Home Medications Medication Instructions Recorded Confirmed Type No Known Home Medications 08/18/18 08/18/18 History Allergies Allergy/AdvReac Type Severity Reaction Status Date / Time No Known Drug Allergies Allergy Verified 08/18/18 20:34 Review of Systems Constitutional Constitutional: Denies chills and Denies fever(s) Cardiovascular Cardiovascular: Denies chest pain Respiratory Respiratory: Denies wheezing Musculoskeletal Musculoskeletal: Reports system reviewed; no additional complaints, except as documented and Denies tingling Neurologic Neurologic: Denies tingling Endocrine Endocrine: Denies change in body appearance Hematologic/Lymphatic Hematologic/Lymphatic: Denies easy bleeding Allergic/Immunologic Allergic/Immunologic: Denies wheezing Comments: Rash with psoriasis Exam Vital Signs (past 8 hours): - 08/19/18 00:35 08/19/18 01:15 08/19/18 01:57 Temperature 98.4 F Pulse Rate 80 85 Respiratory Rate 16 Blood Pressure 153/100 H 132/86 Pulse Oximetry 92 96 08/19/18 04:59 08/19/18 05:00 08/19/18 07:28 Temperature 98.0 F Pulse Rate 76 Respiratory Rate 16 Blood Pressure 125/76 Pulse Oximetry 92 94 92 08/19/18 08:00 Temperature 98.2 F Pulse Rate 78 Respiratory Rate 16 Blood Pressure 119/67 Pulse Oximetry 92 Oxygen Delivery Method Room Air Oxygen Flow Rate 0 Const Orientation: alert and oriented x3 Resp Auscultation: clear to auscultation bilaterally Cardio Rate: regular rate Rhythm: regular rhythm Back/Spine/Pelvis Other: Tender across the thoracolumbar junction in the midline as well as the bilateral lower lumbar paraspinals. 5/5 motor, 2+ reflexes, intact sensation throughout, 2+ dorsalis pedis pulses both lower extremities Extrem Other: Left shoulder -tender along clavicle, AC joint, over the acromion and over the lateral deltoid. Negative Neer. 5/5 motor lifting up shoulder. Left wrist -tender over dorsal carpals, ulnar styloid, radial styloid, and a long volar radial forearm. Full comfortable range of motion of the wrist and fingers. 2+ distal pulses, intact sensation in the fingers Objective Imaging CT of cervical spine: My impression: Significant degenerative changes but no fracture or dislocation. CT chest abdomen pelvis: My impression: Anterior superior body fracture of L1 with extension to the anterior aspect of the right pedicle. No retropulsion into the spinal canal. Anterior superior compression fracture of L2 with no posterior extension. Degenerative changes through the midthoracic spine. Left wrist: My impression: No evidence of fracture Left shoulder: My impression: No evidence of acute fracture. Old healed fracture through the superior medial tip of the acromion with slight superior displacement. There good cortical margins on both edges of the fracture site indicating this is old. Osteophytes of the AC joint. Labs Result Diagrams: 08/18/18 20:10 08/18/18 20:10 Labs: Laboratory Results - last 24 hr 08/18/18 08/18/18 08/18/18 20:10 20:10 20:10 WBC 11.6 H RBC 4.59 Hgb 16.1 Hct 45.3 MCV 98.7 MCH 35.0 H MCHC 35.5 RDW 13.8 Plt Count 274 Neut % (Auto) 68.5 Lymph % (Auto) 21.4 L Richardson % (Auto) 8.8 Eos % (Auto) 0.7 L Baso % (Auto) 0.6 Neut # (Auto) 7900 H Lymph # (Auto) 2500 Richardson # (Auto) 1000 H Eos # (Auto) 100 Baso # (Auto) 100 PT 13.0 H INR 1.1 APTT 30 Sodium 138 Potassium 3.3 L Chloride 102 Carbon Dioxide 26 BUN 16 Creatinine 0.90 Estimated GFR > 60.0 BUN/Creatinine Ratio 17.8 Glucose 158 H Calcium 9.2 Magnesium Total Bilirubin 1.9 H AST 55 ALT 35 Alkaline Phosphatase 84 Total Creatine Kinase Troponin I Total Protein 7.8 Albumin 4.5 Globulin 3.3 Albumin/Globulin Ratio 1.4 Amylase 72 Lipase 50 Urine RBC Urine WBC Urine Bacteria Ur Culture Indicated? Ethyl Alcohol < 10 Blood Type Antibody Screen 08/18/18 08/18/18 08/18/18 20:10 20:10 20:10 WBC RBC Hgb Hct MCV MCH MCHC RDW Plt Count Neut % (Auto) Lymph % (Auto) Richardson % (Auto) Eos % (Auto) Baso % (Auto) Neut # (Auto) Lymph # (Auto) Richardson # (Auto) Eos # (Auto) Baso # (Auto) PT INR APTT Sodium Potassium Chloride Carbon Dioxide BUN Creatinine Estimated GFR BUN/Creatinine Ratio Glucose Calcium Magnesium 2.0 Total Bilirubin AST ALT Alkaline Phosphatase Total Creatine Kinase Troponin I < 0.012 Total Protein Albumin Globulin Albumin/Globulin Ratio Amylase Lipase Urine RBC Urine WBC Urine Bacteria Ur Culture Indicated? Ethyl Alcohol Blood Type O Positive Antibody Screen Negative 08/18/18 08/18/18 20:10 23:33 WBC RBC Hgb Hct MCV MCH MCHC RDW Plt Count Neut % (Auto) Lymph % (Auto) Richardson % (Auto) Eos % (Auto) Baso % (Auto) Neut # (Auto) Lymph # (Auto) Richardson # (Auto) Eos # (Auto) Baso # (Auto) PT INR APTT Sodium Potassium Chloride Carbon Dioxide BUN Creatinine Estimated GFR BUN/Creatinine Ratio Glucose Calcium Magnesium Total Bilirubin AST ALT Alkaline Phosphatase Total Creatine Kinase 969 H Troponin I Total Protein Albumin Globulin Albumin/Globulin Ratio Amylase Lipase Urine RBC 0-1/hpf Urine WBC 0-1/hpf Urine Bacteria None seen Ur Culture Indicated? Cult not indicated Ethyl Alcohol Blood Type Antibody Screen Assessment & Plan Assessment & Plan narrative: L1 burst and L2 compression fracture. I will get him set up for a lumbar orthosis. He does not need to wear this while in bed but should be wearing it when he is up and out of bed. Can remove for very short time for hygiene purposes when erect. I explained to him that he does not need surgical intervention but the brace is indicated for the next 3 months. I anticipate 1 or 2 more days in the hospital for pain control before being able to be discharged. Left shoulder strain -I think this is mostly direct contusion. It does appear that he has an old injury to the medial aspect of the acromion but this does not appear acute. Left wrist strain -no evidence of fracture, agree with soft splint for now.
[2018-08-19] MEDS: IBUPROFEN 600 MG TABLET PO ×2 (10:13→17:07)
[2018-08-19] MEDS: MULTIVIT,CALC,MINS/IRON/FOLIC 1 TABLET 1 TAB PO (10:13)
[2018-08-19] MEDS: THIAMINE 100 MG TABLET PO (10:14)
[2018-08-19 12:17] LABS: Add Manual Diff / Slide Review NO; Basophils Absolute Auto 100 /uL (0-100); Basophils Percent Auto 0.6 % (0-2); Eosinophils Absolute Auto 100 /uL (0-450); Eosinophils Percent Auto 0.7 % (2-4); Hematocrit 40.9 % (41-53); Hemoglobin 14.1 g/dL (13.5-17.5); Lymphocytes Absolute Auto 1600 /uL (1100-4500); Lymphocytes Percent Auto 14.8 % (25-40); Mean Corpuscular HGB Conc 34.5 % (30-36); Mean Corpuscular Hemoglobin 34.4 PG (26-34); Mean Corpuscular Volume 99.7 fL (80-100); Monocytes Absolute Auto 900 /uL (0-900); Monocytes Percent Auto 7.9 % (3-14); Neutrophils Absolute Auto 8300 /uL (1500-7000); Platelet Count 229 X10^3/uL (150-400); Red Cell Distribution Width 13.9 % (11.6-14.8); White Blood Cell Count 10.9 X10^3/uL (4.5-11.0)
[2018-08-19 12:27] LABS: Creatine Kinase 646 U/L (55-170)
[2018-08-19 12:29] LABS: BUN Creatinine Ratio 18.8 (6-22); Blood Urea Nitrogen 15 mg/dL (9-20); Calcium 8.5 mg/dL (8.4-10.2); Carbon Dioxide 27 mmol/L (22-32); Chloride 103 mmol/L (98-107); Estimated Glomerular Filt Rate > 60.0 mL/min (>60); Glucose 105 mg/dL (70-100); HEMOLYSIS < 15 (0-50); Sodium 136 mmol/L (137-145)
--- NOTE | 2018-08-19 13:13 | PC.NURSE ---
Day Shift- Pt A&OX3, does not know date/day of week, states he doesn't pay attention normally. Able to make needs known using call light. High fall risk precautions in place. Bed alarm on. PARRIS bed tilt used for repositioning from side to side. Pillow support between legs. Calf SCD's BLE. Wanted only Ibuprofen for pain management at this time. PRN dose at 1015. Aware of prn Oxycodone if needed. Pt wanted to sleep most of morning and be disturbed as little as possible. Pt arousable and compliant with care. Frequent checks done by this verse writer and MEASUREMENT AND VERIFICATION ENGINEER. Pt first refused 1200 lab draw, stated he gets high anxiety from needles. Was able to support pt with wind technician assist as well and pt was agreeable. Pt had no urge to void throughout shift. Had a few sips of water with meds. Refused breakfast and lunch. IVF infusing well to right AC PIV. MEASUREMENT AND VERIFICATION ENGINEER bladder scanned pt at 1425 for approx 411mls of fluid in bladder. Pt assisted to perform a bed dangle with log roll and 2PA in order to void. Spoke with Dr. Ramos at 1435 to be made aware that per PT , LOTT 3 point brace not available today. Keep bedrest for now and add scheduled Lovenox injections.
--- NOTE | 2018-08-19 14:04 | CM.IDA ---
Initial DCP Assessment Note: Pt is a 53 yo male, resident of [facility]. Pt here under observation after falling out of a tree 2 days ago at home. PCP: Not listed Payer: Self Pay Met w/pt this afternoon, explained role. Pt is somewhat groggy during our visit, has short answers to questions. Pt lives w/ his 25 yo son Kashmir P# [phone], pt states Kashmir can help him upon his return home. 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 Asked pt about insurance? Pt confirms he doesn't have any , his employer does not offer insurance, and doesn't know how he will pay for this hospitalization. This WIRELESS COMMUNICATIONS ENGINEER suggested someone from the admitting team visit him Monday to review his options for insurance? Pt agreeable and says he makes approx $3,000 monthly. P: Home w/fitted back brace and family to assist in 24-48 hrs, likely no barriers. This WIRELESS COMMUNICATIONS ENGINEER will email admit change group to request a visit Monday. He will benefit from a Risa Application. AMBER [place] Discharge Planning/Care Management Protocol: Document 08/19/18 13:49 LEO (Rec: 08/19/18 14:04 LEO [id number]) Discharge Planning Assessment Assigned Manager Maritime AMBER Lorenzo DPOA/Assigned Designee Name dora Spain Contact Information P# [phone] Advance Directives? No History Provided By Patient Medical Record Prior Living Arrangements Apartment/Condo Household Members children Type of transporation used prior to Drives own vehicle admit Independent with ADL's Yes Is patient alert and oriented? Yes Barriers to Discharge No Discharge Plan Home Transportation Arrangement Family Referrals Initiated None needed Whiteboard Updated in Patient Room with Yes name and ext. # of Manager Maritime Review Status In Process
--- NOTE | 2018-08-19 14:59 | P.CONS_ITS ---
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 He had immediate back and wrist pain which persisted so he sought evaluation. He is alert and oriented, moving all extremities, and has no neurologic deficits. Labs and vitals unremarkable save a mildly elevated TB to 1.9 (pt has etoh dependence diagnosis) and an elevated CK to 900s. He has findings of an L1 burst frx and an L2 compression frx, no significant height loss. Also note of a left scaphoid frx for which he is already in a soft splint and a likely shoulder strain. Ortho consulted. [facility] Medical History Alcohol dependence (Chronic) Marijuana use, continuous (Chronic) Osteoarthritis, multiple sites (Chronic) Presence of mandibular implant (Chronic) Surgical History S/P appendectomy (Acute) Family History Mother Heart disease Ovarian cancer Breast cancer Father No known health problems Brother Heart disease Myocardial infarction Brother Gunshot injury Social History household members: children Smoking Status: Current some day smoker alcohol intake: current Family History Mother Heart disease Ovarian cancer Breast cancer Father No known health problems Brother Heart disease Myocardial infarction Brother Gunshot injury Social History household members: children Smoking Status: Current some day smoker alcohol intake: current Meds Home Medications Medication Instructions Recorded Confirmed Type No Known Home Medications 08/18/18 08/18/18 History Allergies Allergy/AdvReac Type Severity Reaction Status Date / Time No Known Drug Allergies Allergy Verified 08/18/18 20:34 Review of Systems Constitutional Constitutional: Reports as per HPI Exam Vital Signs (past 8 hours): - 08/19/18 07:28 08/19/18 08:00 08/19/18 08:57 Temperature 98.2 F Pulse Rate 78 Respiratory Rate 16 Blood Pressure 119/67 Pulse Oximetry 92 92 91 08/19/18 11:52 08/19/18 12:10 08/19/18 13:12 Temperature 98.1 F Pulse Rate 78 Respiratory Rate 16 Blood Pressure 120/75 Pulse Oximetry 94 93 93 Oxygen Delivery Method Room Air Oxygen Flow Rate 0 Narrative Exam Narrative: AAO, NAD, overweight male EOMI, MMM, no scleral icterus unlabored RA soft, nt/nd MAEW; L wrist in soft splint; BL calves soft and equal visible skin dry and intact Objective Labs Result Diagrams: 08/19/18 12:08 08/19/18 12:08 Labs: Laboratory Results - last 24 hr 08/18/18 08/18/18 08/18/18 20:10 20:10 20:10 WBC 11.6 H RBC 4.59 Hgb 16.1 Hct 45.3 MCV 98.7 MCH 35.0 H MCHC 35.5 RDW 13.8 Plt Count 274 Neut % (Auto) 68.5 Lymph % (Auto) 21.4 L [place] % (Auto) 8.8 Eos % (Auto) 0.7 L Baso % (Auto) 0.6 Neut # (Auto) 7900 H Lymph # (Auto) 2500 [place] # (Auto) 1000 H Eos # (Auto) 100 Baso # (Auto) 100 PT 13.0 H INR 1.1 APTT 30 Sodium 138 Potassium 3.3 L Chloride 102 Carbon Dioxide 26 BUN 16 Creatinine 0.90 Estimated GFR > 60.0 BUN/Creatinine Ratio 17.8 Glucose 158 H Calcium 9.2 Magnesium Total Bilirubin 1.9 H AST 55 ALT 35 Alkaline Phosphatase 84 Total Creatine Kinase Troponin I Total Protein 7.8 Albumin 4.5 Globulin 3.3 Albumin/Globulin Ratio 1.4 Amylase 72 Lipase 50 Urine RBC Urine WBC Urine Bacteria Ur Culture Indicated? Ethyl Alcohol < 10 Blood Type Antibody Screen 08/18/18 08/18/18 08/18/18 20:10 20:10 20:10 WBC RBC Hgb Hct MCV MCH MCHC RDW Plt Count Neut % (Auto) Lymph % (Auto) [place] % (Auto) Eos % (Auto) Baso % (Auto) Neut # (Auto) Lymph # (Auto) [place] # (Auto) Eos # (Auto) Baso # (Auto) PT INR APTT Sodium Potassium Chloride Carbon Dioxide BUN Creatinine Estimated GFR BUN/Creatinine Ratio Glucose Calcium Magnesium 2.0 Total Bilirubin AST ALT Alkaline Phosphatase Total Creatine Kinase Troponin I < 0.012 Total Protein Albumin Globulin Albumin/Globulin Ratio Amylase Lipase Urine RBC Urine WBC Urine Bacteria Ur Culture Indicated? Ethyl Alcohol Blood Type O Positive Antibody Screen Negative 08/18/18 08/18/18 08/19/18 20:10 23:33 12:08 WBC 10.9 RBC 4.10 L Hgb 14.1 Hct 40.9 L MCV 99.7 MCH 34.4 H MCHC 34.5 RDW 13.9 Plt Count 229 Neut % (Auto) 76.0 H Lymph % (Auto) 14.8 L [place] % (Auto) 7.9 Eos % (Auto) 0.7 L Baso % (Auto) 0.6 Neut # (Auto) 8300 H Lymph # (Auto) 1600 [place] # (Auto) 900 Eos # (Auto) 100 Baso # (Auto) 100 PT INR APTT Sodium Potassium Chloride Carbon Dioxide BUN Creatinine Estimated GFR BUN/Creatinine Ratio Glucose Calcium Magnesium Total Bilirubin AST ALT Alkaline Phosphatase Total Creatine Kinase 969 H Troponin I Total Protein Albumin Globulin Albumin/Globulin Ratio Amylase Lipase Urine RBC 0-1/hpf Urine WBC 0-1/hpf Urine Bacteria None seen Ur Culture Indicated? Cult not indicated Ethyl Alcohol Blood Type Antibody Screen 08/19/18 08/19/18 12:08 12:08 WBC RBC Hgb Hct MCV MCH MCHC RDW Plt Count Neut % (Auto) Lymph % (Auto) [place] % (Auto) Eos % (Auto) Baso % (Auto) Neut # (Auto) Lymph # (Auto) [place] # (Auto) Eos # (Auto) Baso # (Auto) PT INR APTT Sodium 136 L Potassium 4.0 Chloride 103 Carbon Dioxide 27 BUN 15 Creatinine 0.80 Estimated GFR > 60.0 BUN/Creatinine Ratio 18.8 Glucose 105 H Calcium 8.5 Magnesium Total Bilirubin AST ALT Alkaline Phosphatase Total Creatine Kinase 646 H Troponin I Total Protein Albumin Globulin Albumin/Globulin Ratio Amylase Lipase Urine RBC Urine WBC Urine Bacteria Ur Culture Indicated? Ethyl Alcohol Blood Type Antibody Screen Assessment & Plan Assessment & Plan narrative: - s/p mechanical fall from ~30 ft --> no LOC, no neurologic defecits --> on telemetry, in NSR - pulm toilet: pt using IS already - pain control: adequate on current regimen --> bowel regimen due to immobility and narcotics - L 1 & 2 compression frx --> TLSO ordered per ortho --> PT when brace arrives --> reviewed precautions with pt - L wrist in splint per ortho - CK elevated, recheck ordered, on adequate IVFs; may need to increase should lab arise; Cr wnl - TB: on CT, biliary system appears normal but pt has diffuse fatty infiltration of liver --> FU with PCP for workup to r/o underlying disease process such as hepatic steatosis and/or early cirrhotic changes due to etoh - recommend SCDs and trauma dosing of 30mg enoxaparin for chemoprophylaxis due to high risk for DVT given bed rest and trauma
[2018-08-19] MEDS: ENOXAPARIN 40 MG/0.4 ML SYRINGE SUBCUT (15:00)
--- NOTE | 2018-08-19 15:03 | PT.IPTN ---
Current Diagnoses Stable burst fracture of first lumbar vertebra, initial encounter for closed fracture (08/19/18) Physical Therapy Treatment Note M3 PT-IP Subjective Start: 08/19/18 15:00 Freq: NEEDED Status: Active Protocol: Document 08/19/18 15:00 [facility] (Rec: 08/19/18 15:03 [facility] [id number]) Subjective Physical Therapy Visit Type Type Cancellation Notes spoke with RN and called Dr Ramos, Dr Ramos ordered LOTT 3 point brace for pt. This keno writer/runner spoke with Nicolasa, no LOTT brace in stock but will be able to come in tomorrow a.m. (Monday) and fit pt for brace to be able to mobilize OOB tomorrow. Dr. Ramos verbalized clearance for this plan. Gave pt log roll sheet and discussed importance of ankle pumps and heel slides. Did not recommend SLR due to lumbar fx's.
[2018-08-19] MEDS: KCL 20 MEQ IN NS 1,000 ML 100 MEQ IV (15:30)
--- NOTE | 2018-08-19 17:23 | PC.NURSE ---
Addendum entered by Miranda Yun R.N. 08/19/18 20:14: Resting quietly after pain med. Tele NSR all evening per ICU staff IVF continue as per orders. Assisted w/repositioning as needed. Call light w/in reach, bed alarm on for pt safety. Continue w/plan of care. Original Note: Pt assisted w/repositioning. Lungs clear/diminished due to shallow breaths. SpO2 96% RA IV of NS w/20meq KCL infusing @ 100cc/hr via pump into RAC w/o incidence. Left wrist brace in place. Med @ 1710 w/Ibpuprophen as per orders for discomfort . Call light w/in reach/ bed alarm on for pt safety.
[2018-08-20] VITALS (13 sets, daily range): BP systolic 103–139; BP diastolic 65–85; PULSE 73–83; RESP 16–18; TEMP 36.6–37; O2SAT 92–98
[2018-08-20] MEDS: OXYCODONE IR 5 MG TABLET PO (00:08)
[2018-08-20] MEDS: IBUPROFEN 600 MG TABLET PO ×3 (00:33→21:44)
[2018-08-20] MEDS: KCL 20 MEQ IN NS 1,000 ML 100 MEQ IV (03:38)
--- NOTE | 2018-08-20 05:58 | PC.NURSE ---
Declined pain medication this morning. States I'm doing fine, last admin. of pain medication was @0008, 5 mg. of Oxycodone & 600 mg. of Ibuprofen @ 0033. Instructed to call RN. if he needed pain medication. Will cont. POC & monitor.
--- NOTE | 2018-08-20 08:35 | PT.IPTN ---
Current Diagnoses Stable burst fracture of first lumbar vertebra, initial encounter for closed fracture (08/19/18) Physical Therapy Treatment Note Notes [facility] unable to deliver brace until tomorrow, per mobility orders pt cannot mobilize OOB without brace donned. Will hold PT eval until tomorrow, after brace is delivered and fit.
[2018-08-20] MEDS: OXYCODONE IR 5 MG TABLET 10 MG PO ×4 (09:04→23:27)
--- NOTE | 2018-08-20 10:29 | P.PN_ITS ---
Subjective Date Patient Seen: 08/20/18 Time Patient Seen: 09:00 Interval history: Patient who is HD#2 s/p fall from height with L1, L2 compression fractures. He continues to have significant pain, worse in the lumbar spine than the wrist or shoulder. He is ambulating to the bathroom but with significant discomfort. He was fitted with wrist splint but does not have lumbar brace as of yet. Denies any chest pain, shortness of breath, fever, chills. Exam Vital Signs (past 8 hours): - 08/20/18 05:00 08/20/18 06:00 08/20/18 07:45 Temperature 98.0 F 98.3 F Pulse Rate 73 79 Respiratory Rate 16 16 Blood Pressure 122/67 123/65 Pulse Oximetry 95 94 94 08/20/18 09:53 Temperature Pulse Rate Respiratory Rate Blood Pressure Pulse Oximetry 97 Oxygen Delivery Method Room Air Oxygen Flow Rate 0 Narrative Exam Narrative: 53 year old male resting uncomfortably in bed, no acute distress. Alert and oriented. 5/5 foot dorsiflexion/plantar flexion. Sensation intact to light touch in all extremities. Soft, compressible calves. Palpable pedal pulses. Good capillary refill in the hands. Objective Labs Result Diagrams: 08/19/18 12:08 08/19/18 12:08 Labs: Laboratory Results - last 24 hr 08/19/18 08/19/18 08/19/18 12:08 12:08 12:08 WBC 10.9 RBC 4.10 L Hgb 14.1 Hct 40.9 L MCV 99.7 MCH 34.4 H MCHC 34.5 RDW 13.9 Plt Count 229 Neut % (Auto) 76.0 H Lymph % (Auto) 14.8 L [place] % (Auto) 7.9 Eos % (Auto) 0.7 L Baso % (Auto) 0.6 Neut # (Auto) 8300 H Lymph # (Auto) 1600 [place] # (Auto) 900 Eos # (Auto) 100 Baso # (Auto) 100 Sodium 136 L Potassium 4.0 Chloride 103 Carbon Dioxide 27 BUN 15 Creatinine 0.80 Estimated GFR > 60.0 BUN/Creatinine Ratio 18.8 Glucose 105 H Calcium 8.5 Total Creatine Kinase 646 H Assessment & Plan Assessment & Plan narrative: Goal for today is to improve pain control. Oxycodone 10mg for severe pain added, may take 5mg for moderate pain. Patient should be fitted for TLSO brace today. Continue to mobilize as tolerated. Quality VTE Deep Vein Thrombosis/Pulmonary Embolism Present on Admission: No
--- NOTE | 2018-08-20 12:00 | P.PN_ITS ---
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 He had immediate back and wrist pain which persisted so he sought evaluation. He is alert and oriented, moving all extremities, and has no neurologic deficits. Labs and vitals unremarkable save a mildly elevated TB to 1.9 (pt has etoh dependence diagnosis) and an elevated CK to 900s. He has findings of an L1 burst frx and an L2 compression frx, no significant height loss. Also note of a left scaphoid frx for which he is already in a soft splint and a likely shoulder strain. Ortho consulted. No new events, pt sleeping soundly on my visit. Exam Vital Signs (past 8 hours): - 08/20/18 05:00 08/20/18 06:00 08/20/18 07:45 Temperature 98.0 F 98.3 F Pulse Rate 73 79 Respiratory Rate 16 16 Blood Pressure 122/67 123/65 Pulse Oximetry 95 94 94 08/20/18 09:53 Temperature Pulse Rate Respiratory Rate Blood Pressure Pulse Oximetry 97 Oxygen Delivery Method Room Air Oxygen Flow Rate 0 Narrative Exam Narrative: soundly asleep and snoring, comfortable Objective Labs Result Diagrams: 08/19/18 12:08 08/19/18 12:08 Labs: Laboratory Results - last 24 hr 08/19/18 08/19/18 08/19/18 12:08 12:08 12:08 WBC 10.9 RBC 4.10 L Hgb 14.1 Hct 40.9 L MCV 99.7 MCH 34.4 H MCHC 34.5 RDW 13.9 Plt Count 229 Neut % (Auto) 76.0 H Lymph % (Auto) 14.8 L [place] % (Auto) 7.9 Eos % (Auto) 0.7 L Baso % (Auto) 0.6 Neut # (Auto) 8300 H Lymph # (Auto) 1600 [place] # (Auto) 900 Eos # (Auto) 100 Baso # (Auto) 100 Sodium 136 L Potassium 4.0 Chloride 103 Carbon Dioxide 27 BUN 15 Creatinine 0.80 Estimated GFR > 60.0 BUN/Creatinine Ratio 18.8 Glucose 105 H Calcium 8.5 Total Creatine Kinase 646 H Assessment & Plan Assessment & Plan narrative: - not disturbed from sleep as I have no new issues to address with patient from a trauma standpoint --> cont' pulm toilet and pain control --> generous bowel regimen due to narcotics and immobility - hopefully TLSO fitting today then up with PT - soft brace for L wrist - CK elevated, down on recheck, on adequate IVFs - TB: on CT, biliary system appears normal but pt has diffuse fatty infiltration of liver --> FU with PCP for workup to r/o underlying disease process such as hepatic steatosis and/or early cirrhotic changes due to etoh - recommend SCDs and trauma dosing of 30mg enoxaparin for chemoprophylaxis due to high risk for DVT given bed rest and trauma Trauma surgery will follow peripherally and remain available as needed Quality VTE Deep Vein Thrombosis/Pulmonary Embolism Present on Admission: No
[2018-08-20] MEDS: LIDOCAINE PATCH 1 EACH ADH..PATCH TOP (14:24)
--- NOTE | 2018-08-20 15:08 | OT.IP.TRT ---
Current Diagnoses Alcohol dependence, uncomplicated (08/19/18) Stable burst fracture of first lumbar vertebra, initial encounter for closed fracture (08/19/18) Occupational Therapy Treatment Note M3 OT- IP Subjective and Pain Start: 08/20/18 15:06 Freq: Status: Active Protocol: Document 08/20/18 15:06 [facility] (Rec: 08/20/18 15:08 [facility] [id number]) OT- Subjective Occupational Therapy Visit Type Type Administrative Note Notes Awaiting arrival of back brace for pt from [facility], therefore to do OT eval tomorrow after brace comes as orders are pt to have brace on when out of bed.
--- NOTE | 2018-08-20 16:16 | PM.PN.1 ---
Subjective Date Patient Seen: 08/20/18 Time Patient Seen: 16:16 Interval history: Wrist in shoulder doing better but the back is still fairly sore. Exam Vital Signs (past 8 hours): - 08/20/18 09:53 08/20/18 11:25 08/20/18 13:31 Temperature 97.8 F Pulse Rate 78 Respiratory Rate 16 Blood Pressure 127/75 Pulse Oximetry 97 92 92 08/20/18 15:53 Temperature 98.6 F Pulse Rate 83 Respiratory Rate 16 Blood Pressure 137/73 Pulse Oximetry 95 Oxygen Delivery Method Room Air Oxygen Flow Rate 0 Const Orientation: alert and oriented x3 Back/Spine/Pelvis Other: Tender across the thoraco lumbar junction and lower lumbar spine paraspinals. 5/5 motor both lower extremities Extrem Other: Tender over left wrist Objective Imaging Left wrist: My impression: On further review there is a nondisplaced mid scaphoid transverse fracture Labs Result Diagrams: 08/19/18 12:08 08/19/18 12:08 Assessment & Plan Assessment & Plan narrative: L1 burst and L2 compression fractures -stable for now. Waiting for his brace, which he should receive tomorrow. Upon repeat review of the x-rays he does have a nondisplaced transverse mid scaphoid fracture. We will switch him out to a thumb spica brace Probable discharge home tomorrow if more comfortable and stable and bracing Quality VTE Deep Vein Thrombosis/Pulmonary Embolism Present on Admission: No
[2018-08-20] MEDS: POLYETHYLENE GLYCOL 3350 17 GM POWD.PACK PO (17:39)
--- NOTE | 2018-08-20 17:46 | P.PN_ITS ---
Subjective Date Patient Seen: 08/20/18 Interval history: Robel Cruz is a 53-year-old male with a past medical history significant for alcohol dependence abuse, marijuana use, and chronic low back pain who presented to the ED after 30 ft fall from tree with low back pain. The patient is resting in bed and appears mildly uncomfortable. He reports back pain only with movement. His pain is controlled with as needed oxycodone. Per nursing staff, the patient has been up to the bathroom. Ortho would like patient to have lumbar back brace in place before mobilization. He denies headache, shortness of breath, chest pain, abdominal pain, nausea, vomiting, fever, chills, dysuria, diarrhea or constipation. He is voiding without difficulty. He has not had a bowel movement since admission and will implement bowel regimen prophylactically for narcotic use. Exam Vital Signs (past 8 hours): - 08/20/18 09:53 08/20/18 11:25 08/20/18 13:31 Temperature 97.8 F Pulse Rate 78 Respiratory Rate 16 Blood Pressure 127/75 Pulse Oximetry 97 92 92 08/20/18 15:53 Temperature 98.6 F Pulse Rate 83 Respiratory Rate 16 Blood Pressure 137/73 Pulse Oximetry 95 Oxygen Delivery Method Room Air Oxygen Flow Rate 0 Narrative Exam Narrative: General: Middle-aged gentleman lying in bed and in no acute distress, appears mildly uncomfortable well-developed, well-nourished, appropriately interactive HEENT: Normocephalic, atraumatic. External ears without defect. Pupils equal, round, and reactive to light. Anicteric sclerae, moist conjunctivae, and no lid lag. Neck: Supple with full range of motion. No lymphadenopathy or thyromegaly. Cardiovascular: Regular rate and rhythm without murmurs, rubs, or gallops appreciated. Pulmonary: Clear to auscultation bilaterally without crackles, wheezes, or rhonchi. Normal respiratory effort with no use of accessory muscles. Abdomen: Soft, bowel sounds present, nontender, nondistended. No hepatosplenomegaly or masses appreciated. Back: Significant tenderness to palpation of upper lumbar spine. Patient also has significant pain with any movement even forward leaning. Extremities: No clubbing, cyanosis, or edema. Left wrist with brace in place. Skin: Normal temperature, turgor, and texture; no rash, ulcers, or subcutaneous nodules appreciated. Neurological: Cranial nerves grossly intact. Psychiatric: Normal mood and flat affect. Alert and oriented to person, place, and time. Objective Labs Result Diagrams: 08/19/18 12:08 08/19/18 12:08 Assessment & Plan Assessment & Plan narrative: Robel Cruz is a 53-year-old male with a past medical history significant for alcohol dependence abuse, marijuana use, and chronic low back pain who presented to the ED after 30 ft fall from tree with low back pain. 1. Acute L1-L2 compression fractures and left wrist transverse mid scaphoid nondisplaced fracture, present on admission. Active. -Secondary to trauma as patient fell from a height of 30 ft from tree. -Left wrist x-ray demonstrated minimally displaced scaphoid fracture. -CT abdomen and pelvis with contrast demonstrated L1 and L2 compression fractures. -Consulted orthopedic surgery, Dr. Ramos, who recommends TLSO back brace prior to mobilization which will be here tomorrow. Continue thumb spica brace for left wrist. Prolonged bedrest to be avoided and early mobilization is ideal. -Continue pain control with ibuprofen 600 mg every 6 hours, lidocaine patch applied topically daily, cyclobenzaprine 10 mg every 6 hours as needed for muscle spasm, and oxycodone 5-10 mg every 4 hours as needed for moderate to severe pain. -Continue to ice compression fractures and left wrist as tolerated. -Continue neurovascular checks of bilateral lower extremities. -Continue physical and occupational therapies evaluation and treatment once TLSO back brace in place. 2. Acute elevated total creatinine kinase after trauma, present on admission. Resolving. 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 Trending down. -Discontinued IV fluids as patient is adequately hydrated. Continue to encourage p.o. intake of fluids. 3. Acute hypokalemia, present on admission. Resolved. -Suspected to be in the setting of decreased food and fluid intake. DDx of malabsorption in the setting of chronic EtOH use. -Received potassium chloride 20 mEq IV x 2 and 40 mEq PO x 1. -Continue to monitor potassium level closely. 4. Alcohol dependence versus abuse, chronic, present on admission. Stable. -Patient reports he drinks a half of a 5th of hard alcohol every 2-3 days. -Alcohol level not elevated on admission. Patient admits to drinking day of fall and admission. -Continue multivitamin, folate, and thiamine. -Continue to monitor closely for signs and symptoms of alcohol withdrawal. 5. Fatty liver disease with elevated bilirubin, chronic, present on admission. Stable. 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 -CT abdomen and pelvis demonstrated diffuse fatty infiltration of liver. -Encouraged lifestyle modification including alcohol cessation or cutting back on alcohol substantially. Also discussed and recommended diet and exercise. Disposition: Awaiting lumbar back brace then will mobilize patient with PT/OT. Patient does not have insurance coverage and RAILWAY TRACK WORKER has been consulted. Patient likely to discharge home in several days once pain control adequate he is able to mobilize. Quality VTE Deep Vein Thrombosis/Pulmonary Embolism Present on Admission: No
--- NOTE | 2018-08-20 18:31 | OT.IP.EVAL ---
Current Diagnoses Alcohol dependence, uncomplicated (08/19/18) Stable burst fracture of first lumbar vertebra, initial encounter for closed fracture (08/19/18) Past Medical History (Last Reviewed 08/19/18 @ 14:55 by Isabel Holder MD) Alcohol dependence (Chronic) Marijuana use, continuous (Chronic) Osteoarthritis, multiple sites (Chronic) Presence of mandibular implant (Chronic) Surgical History (Last Reviewed 08/19/18 @ 14:55 by Isabel Holder MD) S/P appendectomy (Acute) Occupational Therapy Inpatient Evaluation/Re-Eval M1 PT/OT-IP Prior Functional Status Start: 08/20/18 15:06 Freq: NEEDED Status: Active Protocol: Document 08/20/18 18:06 [facility] (Rec: 08/20/18 18:30 [facility] [id number]) Medical Review Prior Functional Status Medical History Reviewed Yes Communication independent Mobility and Gait Pt states does not use a device for walking. 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 Social History Household Members none Living Arrangements House Number of Floors (Floors) One Floor Number of Stairs To Enter/Railing? Pt states no steps to enter. 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 M2 OT-IP Current Condition Start: 08/20/18 15:06 Freq: Status: Active Protocol: Document 08/20/18 18:06 [facility] (Rec: 08/20/18 18:30 [facility] [id number]) Occupational Therapy Current Condition Current Condition Evaluation Date 08/20/18 Treatment Diagnosis L1 , L2 compression fracture, left minimally displaced mid scaphoid fracture Diagnosis Onset Date 08/17/18 Post Operative Precautions Lumbar Precautions Log Roll No Twisting Limit Bending Lifting Restriction of 10 lbs Gait Belt above Incisional Area Other Precautions Thumb Spica brace for left hand on at all times except for hygiene, Allan 3 point brace on when OOB breifly remove for hygiene. Weight Bearing Status Weight Bearing Status Weight Bear as Tolerated Allowed Weight Bearing Amount (enter % WBAT for BLE or #) (%) M3 OT- IP Subjective and Pain Start: 08/20/18 15:06 Freq: Status: Active Protocol: Document 08/20/18 18:06 [facility] (Rec: 08/20/18 18:10 [facility] [id number]) OT- Subjective Occupational Therapy Visit Type Type Initial Evaluation Visit Start Time 16:35 Visit Stop Time 16:55 Total Visit Minutes 20 Notes PA came in and requested pt to have thumb spica wrist brace instead of current wrist cock up brace due to pt's left minimally displaced mid scaphoid transverse fracture. Therefore able to dispense thumb spica brace to pt. Occupational Therapy Visit Comments Patient Comments Pt states feeling better and was sitting in the recliner. Pt's son present during OT eval. OT Pain Assessment Pain When Pain Assessed At Rest Pain Present Pain Present Pain Reported Location Back Intensity 4 Scale Used Numeric (1 - 10) M4 OT- IP ADL's Start: 08/20/18 15:06 Freq: Status: Active Protocol: Document 08/20/18 18:06 [facility] (Rec: 08/20/18 18:30 [facility] [id number]) OT [id number] General Evaluation Self-Feeding Ability Independent OT ADL-Dressing Comments OT Dressing Comments Educated pt to henrik/doff thumb spica brace, pt able to show good understanding and safety. OT ADL-Toileting Comments OT Toileting Comments Not needing to go at this time . Suggested at home to have a urinal. Pt states usually does not get up at night to urinate. OT ADL-Bathing Comments OT Bathing Comments Not at this time. M5 OT- IP IADL's Start: 08/20/18 15:06 Freq: Status: Active Protocol: Document 08/20/18 18:06 [facility] (Rec: 08/20/18 18:30 [facility] [id number]) OT-Instrumental Activities of Daily Living Home Safety Awareness Home Safety Comments To assess in more details tomorrow. M6 OT- IP Functional Cognition Start: 08/20/18 15:06 Freq: Status: Active Protocol: Document 08/20/18 18:06 [facility] (Rec: 08/20/18 18:30 [facility] [id number]) Cognitive Factors Limiting Selfcare Function Cognitive Ability Level of Alertness Alert Patient Orientation Name Age Year Place Situation Attention Span Ability Capable of Focused Attention Capable of Sustained Attention Ability to Follow Commands Able to Follow One Step Commands Cognitive Comments Cognitive Assessment Comments Pt states not very good with writing or reading and tania remembers what the date, time , or month that it is. OT- Vision and Hearing OT- Hearing Assessment OT- Hearing Assessment WFL M7 OT- IP Mobility and Balance Start: 08/20/18 15:06 Freq: Status: Active Protocol: Document 08/20/18 18:06 [facility] (Rec: 08/20/18 18:30 [facility] [id number]) OT-Transfer Assessment Sit to and From Stand Sit to and from Stand Standby Assistance Comments Mobility Comments Pt needing to readjust and wanting to stand. Pt able to come to stand from recliner with SBA. Heavily stressed to pt that he needs to follow log rolling for bed mobility needs . Pt not wanting to get back to bed at this time. M8 OT- IP Objective Assessments Start: 08/20/18 15:06 Freq: Status: Active Protocol: Document 08/20/18 18:06 [facility] (Rec: 08/20/18 18:30 [facility] [id number]) OT Gross Range of Motion Upper Extremity Range of Motion Assessment Left Impaired ROM Impairments Pt decreased at end ranges for left shoulder mainly due to pain. OT Strength Comments Strength Comments RUE 5/5, Left shoulder elbow 4 +/5 M9 OT- IP Assessment and Plan Start: 08/20/18 15:06 Freq: Status: Active Protocol: Document 08/20/18 18:06 [facility] (Rec: 08/20/18 18:30 [facility] [id number]) OT Summary Assessment and Plan Potential Rehabilitation Potential Good Analytic Complexity at Evaluation Low Summary OT Impairments Pain Strength Coordination Functional Cognition Functional Mobility Dressing Toileting Bathing Toilet Transfers Shower Transfers Progress Towards Goals Slow Progress due to Pain Slow Progress due to Medical Issues Assessment Summary Pt low complexity at this time , only able to minimally assess pt for mobility and ADL needs and mainly able to help get appropriate brace for pt's left hand. In addition waiting on back brace to arrive tomorrow. Pt states has family to assist and that son can stay with him initially at home if needed. Therefore suggest home with assist when medically stable. Goals Grooming Goal Independent Dressing Goal Independent Toileting Goal Independent Bathing Goal Standby Assistance Toilet Transfer Goal Independent Shower Transfer Goal Contact Guard Assistance Patient/Caregiver Education Goal Demonstrate Post-Op Precautions Caregiver Independent Assisting Patient Days to Meet Goals 3 Frequency of Treatment Frequency Of Treatment Once a Day Treatment Plan OT Treatment Plan ADL Training Functional Cognition Training Functional Mobility Patient/Family Education Discharge Planning Other Treatment Recommendations and Next caregiver training with family Treatment Focus Discharge Recommendations OT Discharge Recommendations Home with Assistance Home Equipment Needs Shower chair versus tub bench
--- NOTE | 2018-08-20 18:34 | CM.MNRNOTE ---
Evening note: Robel sitting up in recliner, denies need to transfer back to bed. Does report good pain relief from taking 2 oxycodone earlier this afternoon, rates pain to low back 4/10, medicated with 2 tabs oxycodone. Also reports lower abd/groin pain since I fell. Still waiting for back brace to be delivered to hospital. Left hand/wrist in brace. CMS intact. Still no BM, agreed to take Miralax mixed with water per his preference. VS stable, Tele sinus rhythm. He refused his Lovenox injection at this time & requests to get shot after he gets back into bed later tonight. Told me I have never liked shots. Fall precautions are in place. His son is visiting at chairside.
[2018-08-20] MEDS: SODIUM CHLORIDE 0.9% FLUSH 10 ML IV (21:46)
[2018-08-20] MEDS: DOCUSATE 100 MG CAPSULE PO (21:46)
--- NOTE | 2018-08-20 23:41 | PC.NURSE ---
Addendum entered by Dorota Farmer R.N. 08/21/18 06:45: Has not voided since shift change but not wanting to get up to urinate so agreeable to bladder scan which showed 510cc so patient did get up and voided 500cc. States he has not slept well all night even though when checked appeared to be resting/asleep. Requesting pain medication to help him sleep but too early for Oxycodone so given Flexeril. Patient put med cup up to mouth but states there was nothing in it. No pill found in bed or on gown by touch and patient did not want to get up again so stated don't bother, I just want to go to sleep. Addendum entered by Dorota Farmer R.N. 08/21/18 03:45: States pain is again 4/10 so medicated with Oxycodone; declines ice pack at this time. Original Note: Patient is alert and oriented. Breath sounds with inspiratory crackles in right LL with RA sat of 97%; reminded to CDB and use I.S. when awake (currently in too much pain to attempt). HRR. Is on telemetry with last recorded reading of SR. Denies nausea. BT hypoactive; passing flatus. Denies dysuria, frequency, urgency or retention. Able to turn self in bed but is assisted out of bed with walker and 1 assist. Currently with 5/10 back pain; medicated with Oxycodone and ice pack applied. CMS is intact. Wearing splint to left hand; fingers puffy. Wearing bilateral SCD's. Fall risk score is high and bed alarm is activated. Son, Ludwin, rooming in. Awaiting TL brace which is reportedly going to be here tomorrow.
[2018-08-21] MEDS: OXYCODONE IR 5 MG TABLET 10 MG PO ×3 (03:43→17:38)
[2018-08-21 03:48] VITALS: BP 110/69; PULSE 110; RESP 18; TEMP 36.7; O2SAT 95
--- NOTE | 2018-08-21 06:35 | P.PN_ITS ---
Subjective Date Patient Seen: 08/21/18 Time Patient Seen: 06:34 Interval history: Pain is getting better but still present mostly in the lower back. The shoulder is better. Wrist still hurts. Exam Vital Signs (past 8 hours): - 08/20/18 23:20 08/20/18 23:37 08/21/18 03:48 Temperature 98.3 F 98.0 F Pulse Rate 82 110 H Respiratory Rate 18 18 Blood Pressure 103/77 110/69 Pulse Oximetry 98 97 95 Oxygen Delivery Method Room Air Oxygen Flow Rate 0 Const Orientation: alert and oriented x3 Back/Spine/Pelvis Other: Tender across the thoracolumbar junction and upper lumbar paraspinals. Extrem Other: Able to elevate the shoulder. production machine tender over the distal radius and wrist. Objective Labs Result Diagrams: 08/19/18 12:08 08/19/18 12:08 Assessment & Plan Assessment & Plan narrative: Lumbar fractures -waiting on brace today and plan for discharge home afterwards. Plan for bracing for 3 months. Left scaphoid fracture -now in a thumb spica splint. Recheck x-rays and convert into a cast at follow-up in 1 week. Quality VTE Deep Vein Thrombosis/Pulmonary Embolism Present on Admission: No
[2018-08-21 07:00] VITALS: O2SAT 95
[2018-08-21] MEDS: ACETAMINOPHEN 325 MG TABLET 975 MG PO ×2 (07:18→17:40)
[2018-08-21] MEDS: CYCLOBENZAPRINE 10 MG TABLET PO (07:18)
[2018-08-21 07:40] VITALS: BP 162/104; PULSE 72; RESP 16; TEMP 36.3; O2SAT 95
[2018-08-21] MEDS: POLYETHYLENE GLYCOL 3350 17 GM POWD.PACK PO (08:27)
--- NOTE | 2018-08-21 10:30 | CM.DPC ---
DCP/continued: Reviewed chart. Dr. Garcia requesting ELECTRO OPTICAL ENGINEER check in with patient re: ETOH use. Met with patient explained ELECTRO OPTICAL ENGINEER role. Patient alert and oriented sitting in recliner at time of visit. Patient reports that he plans to return home when medically stable. Patient has son/[place] that can assist at home. Patient resides on [facility]. Patient currently waiting for back brace and expected to discharge after that is received. Patient reports that he will need priority boarding pass. Provided that information to supercharger mechanic/Adan. Patient admits to drinking alcohol on regular basis. Patient denies any active withdrawals. Patient does not consider his drinking to be an issue. Patient declines any community resources for alcohol treatment. Patient also reports that he does smoke marijuana on regular basis. Patient very pleasant during interview and declines any d/c planning needs. Patient currently does not qualify for state medical insurance. ELECTRO OPTICAL ENGINEER requested that MD write prescriptions for generic medications if possible. P: Home with supportive son when stable. AMBER Lees
[2018-08-21 11:00] VITALS: O2SAT 97
[2018-08-21 11:45] VITALS: BP 136/83; PULSE 72; RESP 16; TEMP 36.9; O2SAT 97
[2018-08-21] MEDS: DOCUSATE 100 MG CAPSULE PO (13:11)
[2018-08-21] MEDS: MULTIVIT,CALC,MINS/IRON/FOLIC 1 TABLET 1 TAB PO (13:11)
[2018-08-21] MEDS: THIAMINE 100 MG TABLET PO (13:11)
[2018-08-21] MEDS: SODIUM CHLORIDE 0.9% FLUSH 10 ML IV (13:12)
--- NOTE | 2018-08-21 13:35 | PM.DS.1 ---
History of Present Illness Date Patient Seen: 08/21/18 Chief complaint: Fall 30ft from tree Narrative: he patient is a 53-year-old male who presented to the ED out of concern for lower back pain. PMH is significant for marijuana use, EtOH dependence, and chronic low back pain. 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 The fall was accidental and/or unintentional. Patient reports landing onto the left aspect of torso and hip/pelvic area. Denies injury to the head. Denies loss of consciousness. Upon contact with the ground patient experienced immediate pain. He laid on the ground for approximately 30 minutes and then was able to get up on his own and ambulate to this house (40 feet). He went to bed immediately. Reports sleeping for the following 3-4 hours, thereafter remained awake and in much discomfort. He remained in bed most of the day until calming to the ED for further evaluation. Patient denies bowel and/or bladder dysfunction, dysuria, or hematuria. He does come complained of discomfort in the left groin. There is no no testicular pain. Also denies numbness, tingling, or weakness of upper and lower extremities. Note presence of pain in the left wrist and left scapular area. Denies chest pain, palpitations, dizziness, lightheadedness, and syncopal events. Denies hemoptysis and difficulty breathing. Notes pain in oral cavity. Discharge Providers Date of admission: 08/19/18 00:03 Discharge Date: 08/21/18 Consults: 08/18/18 23:50 Consult to General Surgery Stat Comment: Consulting Provider: Isabel Holder Reason for consultation: trauma compression fractures Has provider been notified: Yes Consult to Orthopedic Surgery Stat Comment: Consulting Provider: Bradley Ramos Reason for consultation: L1 -L2 compression fractures Has provider been notified: Yes 08/19/18 01:10 Consult to Discharge Planning Routine Comment: evaluate option of inpatient and outpatient rehab 08/19/18 01:11 Consult to Occupational Therapy Evaluate & Treat Comment: s/p fall, compression fx, decreased ADL ability Physician Instructions: Evaluate and treat Consult to Physical Therapy Evaluate & Treat Comment: s/p fall, compression fx, mobility, TLSO brace Physician Instructions: Evaluate and Treat 08/20/18 12:31 Consult to Maintenance Supervisor Electrical Routine Comment: Discharge provider: Renee Yates MD Summary Discharge Diagnosis: 1. L1-L2 compression fracture, status post fall with traumatic injury, present on admission 2. Left mid scaphoid fracture following fall present on admission 3. Elevated creatinine, kinase 4. Acute hypokalemia, now resolved 5. Alcohol dependence, present on admission 6. Fatty liver Hospital Course: Patient was admitted to the hospital following a traumatic fall of 30 ft. He was found to have an acute L1-L2 compression fracture, in addition to admit scaphoid wrist fracture. He was placed in a splint for his wrist. He had significant pain in his back. A TLSO brace was ordered. Once the patient was placed in the brace he had improvement in his pain. He had no evidence of alcohol withdrawal. His pain improved. He was seen by Physical therapy and Occupational be after placement in the brain and was able to mobilize and ambulate without difficulty. Patient was seen by Dr. Ramos during the hospital stay. He recommended the TLSO brace for 6 weeks and pain control. The patient was deemed appropriate for discharge and arrangements were made for him to be discharged home. Status at Discharge Cognitive/behavioral status at discharge: oriented Functional status at discharge: uses cane/walker Overall status at discharge: patient is not back to baseline Time Spent with Patient Less than 30 minutes Exam Vital Signs (past 8 hours): - 08/21/18 07:00 08/21/18 07:40 08/21/18 11:00 Temperature 97.4 F L Pulse Rate 72 Respiratory Rate 16 Blood Pressure 162/104 H Pulse Oximetry 95 95 97 08/21/18 11:45 Temperature 98.5 F Pulse Rate 72 Respiratory Rate 16 Blood Pressure 136/83 Pulse Oximetry 97 Oxygen Delivery Method Room Air Oxygen Flow Rate 0 Narrative Exam Narrative: Pleasant gentleman in no obvious distress Lungs: Clear to auscultation Cardiac exam: Regular rate rhythm normal S1-S2 Abdomen: Soft and nontender Extremities: No edema Chest and back: Patient is in a TLSO brace. Objective Labs Result Diagrams: 08/19/18 12:08 08/19/18 12:08 Discharge Plan Discharge Plan Patient Disposition: Home Discharge comment: Follow-up with Dr. patel in 2 weeks. Patient will be referred to [facility], and [facility], [phone] for new patient appointment Discharge Med Rec/Prescriptions Prescriptions: New oxycodone 5 mg Tablet 10 mg PO Q4HR PRN (Reason: Pain, Severe (7-10)) 10 Days RF: 0 cyclobenzaprine 10 mg Tablet 10 mg PO Q6H PRN (Reason: Spasms) 15 Days RF: 0 lidocaine 5 % Adhesive Patch,Medicated 1 ea topical BEDTIME 7 Days RF: 0 ibuprofen 600 mg Tablet 600 mg PO Q6HR PRN (Reason: As Needed For Fever/Mild Pain) 15 Days RF: 0 acetaminophen 325 mg Tablet 975 mg PO Q8H PRN (Reason: As Needed For Fever/Mild Pain) 15 Days RF: 0 docusate sodium [DOK] 100 mg Capsule 100 mg PO BID 30 Days Qty: 60 RF: 0 No Action No Known Home Medications RF: 0 Provider Discharge Instructions Diet: Regular Activity: aS tolerated. Patient is to wear the TLSO brace during the day. He may take it off for sleep and showering. Visit Report/Discharge Packet Instructions: Vertebral Compression Fracture, How to Prevent Falls Visit Report Forms: Stroke Signs & Symptoms Discharge Data Attending Provider: Reji Perez Admit Date/Time: 08/19/18 00:03 Quality VTE Deep Vein Thrombosis/Pulmonary Embolism Present on Admission: No
[2018-08-21 15:00] VITALS: BP 124/71; PULSE 71; RESP 16; TEMP 36.8; O2SAT 97
--- NOTE | 2018-08-21 15:05 | OT.IP.TRT ---
Current Diagnoses Alcohol dependence, uncomplicated (08/19/18) Stable burst fracture of first lumbar vertebra, initial encounter for closed fracture (08/19/18) Occupational Therapy Treatment Note M2 OT-IP Current Condition Start: 08/20/18 15:06 Freq: Status: Active Protocol: Document 08/20/18 18:06 [facility] (Rec: 08/20/18 18:30 [facility] [id number]) Occupational Therapy Current Condition Current Condition Evaluation Date 08/20/18 Treatment Diagnosis L1 , L2 compression fracture, left minimally displaced mid scaphoid fractur Diagnosis Onset Date 08/17/18 Post Operative Precautions Lumbar Precautions Log Roll No Twisting Limit Bending Lifting Restriction of 10 lbs Gait Belt above Incisional Area Other Precautions Thumb Spica brace for left hand on at all times except for hygiene, Allan 3 point brace on when OOB breifly remove for hygiene. Weight Bearing Status Weight Bearing Status Weight Bear as Tolerated Allowed Weight Bearing Amount (enter % WBAT for BLE or #) (%) M3 OT- IP Subjective and Pain Start: 08/20/18 15:06 Freq: Status: Active Protocol: Document 08/21/18 15:01 [facility] (Rec: 08/21/18 15:05 [facility] [id number]) OT- Subjective Occupational Therapy Visit Type Type Treatment Note Visit Start Time 14:05 Visit Stop Time 14:15 Total Visit Minutes 10 Occupational Therapy Visit Comments Patient Comments Pt ready to go home. OT Pain Assessment Pain When Pain Assessed At Rest Pain Present Pain Present Denied Pain M4 OT- IP ADL's Start: 08/20/18 15:06 Freq: Status: Active Protocol: Document 08/21/18 15:01 [facility] (Rec: 08/21/18 15:05 [facility] [id number]) OT ADL-Dressing Comments OT Dressing Comments Issued pt AED for dressing needs and able to educate for use. Pt's son to be staying with pt at home to assist. Pt able to independently henrik/ doff left thuumb spica splint. M5 OT- IP IADL's Start: 08/20/18 15:06 Freq: Status: Active Protocol: Document 08/20/18 18:06 [facility] (Rec: 08/20/18 18:30 [facility] [id number]) OT-Instrumental Activities of Daily Living Home Safety Awareness Home Safety Comments Pt's son to stay with pt and assist for needs. M6 OT- IP Functional Cognition Start: 08/20/18 15:06 Freq: Status: Active Protocol: Document 08/20/18 18:06 [facility] (Rec: 08/20/18 18:30 [facility] [id number]) Cognitive Factors Limiting Selfcare Function Cognitive Ability Level of Alertness Alert Patient Orientation Name Age Year Place Situation Attention Span Ability Capable of Focused Attention Capable of Sustained Attention Ability to Follow Commands Able to Follow One Step Commands Cognitive Comments Cognitive Assessment Comments Pt states not very good with writing or reading and never remembers what the date, time , or month that it is. OT- Vision and Hearing OT- Hearing Assessment OT- Hearing Assessment WFL M7 OT- IP Mobility and Balance Start: 08/20/18 15:06 Freq: Status: Active Protocol: Document 08/20/18 18:06 [facility] (Rec: 08/20/18 18:30 [facility] [id number]) OT-Transfer Assessment Sit to and From Stand Sit to and from Stand Standby Assistance Comments Mobility Comments Pt needing to readjust and wanting to stand. Pt able to come to stand from recliner with SBA. Heavily emphasized that pt needs to follow log rolling for bed mobility needs . M8 OT- IP Objective Assessments Start: 08/20/18 15:06 Freq: Status: Active Protocol: Document 08/20/18 18:06 [facility] (Rec: 08/20/18 18:30 [facility] [id number]) OT Gross Range of Motion Upper Extremity Range of Motion Assessment Left Impaired ROM Impairments Pt decreased at end ranges for left shoulder mainly due to pain. OT Strength Comments Strength Comments RUE 5/5, Left shoulder elbow 4 +/5 M9 OT- IP Assessment and Plan Start: 08/20/18 15:06 Freq: Status: Active Protocol: Document 08/21/18 15:01 [facility] (Rec: 08/21/18 15:05 [facility] [id number]) OT Summary Assessment and Plan Potential Rehabilitation Potential Good Analytic Complexity at Evaluation Low Summary OT Impairments Pain Dressing Bathing Progress Towards Goals Progressing Toward Goals Assessment Summary Pt looking to go home today. Noted left hand swollen and re -emphasized for pt to keep left hand elevated and able to take brace off for hygiene and do gentle massage to help with swelling for 2-5th digits and palm. Educated to pt and after seeing physician pt may need hand therapy for left hand pending how his hand heals. PT and [facility] able to come and educated pt to henrik and off back brace, per PT pt able to show good understanding and safety. Frequency of Treatment Frequency Of Treatment Once a Day Discharge Recommendations OT Discharge Recommendations Home with Assistance
--- NOTE | 2018-08-21 15:33 | PT.IIE ---
Current Diagnoses Alcohol dependence, uncomplicated (08/19/18) Stable burst fracture of first lumbar vertebra, initial encounter for closed fracture (08/19/18) Surgical History (Last Reviewed 08/19/18 @ 14:55 by Isabel Holder MD) S/P appendectomy (Acute) Medical History (Last Reviewed 08/19/18 @ 14:55 by Isabel Holder MD) Alcohol dependence (Chronic) Marijuana use, continuous (Chronic) Osteoarthritis, multiple sites (Chronic) Presence of mandibular implant (Chronic) Physical Therapy Inpatient Evaluation/Re-Eval M1 PT/OT-IP Prior Functional Status Start: 08/19/18 15:00 Freq: NEEDED Status: Active Protocol: Document 08/21/18 15:21 IJS (Rec: 08/21/18 15:33 IJS [id number]) Medical Review Prior Functional Status Medical History Reviewed Yes Communication independent Mobility and Gait Pt states didnot use a device. 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 Social History Household Members none Living Arrangements House Number of Floors (Floors) One Floor Number of Stairs To Enter/Railing? Pt states no steps to enter. 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 M1 PT/OT-IP Prior Functional Status Start: 08/20/18 15:06 Freq: NEEDED Status: Active Protocol: Document 08/21/18 15:21 IJS (Rec: 08/21/18 15:33 IJS [id number]) M2 PT-IP Current Condition Start: 08/19/18 15:00 Freq: NEEDED Status: Active Protocol: Document 08/21/18 15:21 IJS (Rec: 08/21/18 15:33 IJS [id number]) Physical Therapy Current Condition Current Condition Evaluation Date 08/21/18 Treatment Diagnosis L1, L2 compression fx and left wrist fx Precautions Cervical Spine Precautions Log Roll Lumbar Precautions Log Roll Limit Bending Lifting Restriction of 10 lbs Brace Fit with a LOTT brace today to limit lumbar flexion Weight Bearing Status Weight Bearing Status Weight Bear as Tolerated M3 PT-IP Subjective Start: 08/19/18 15:00 Freq: NEEDED Status: Active Protocol: Document 08/21/18 15:21 IJS (Rec: 08/21/18 15:33 IJS [id number]) Subjective Physical Therapy Visit Type Type Initial Evaluation Visit Start Time 12:40 Visit Stop Time 13:05 Total Visit Minutes 25 Physical Therapy Visit Comments Patient Comments Ready to get up and walk outside of his room, wants to go home when ready Patient Goals Go home hopefully today Therapy Pain Assessment Pain When Pain Assessed After Treatment Pain Present Pain Present Pain Reported Location Back Intensity 5 Scale Used Numeric (1 - 10) Description Aching Acute Pain Management Techniques Re-positioning M4 PT-IP Mobility and Gait Start: 08/19/18 15:00 Freq: NEEDED Status: Active Protocol: Document 08/21/18 15:21 IJS (Rec: 08/21/18 15:33 IJS [id number]) PT-Transfer Assessment Sit to and From Stand Sit to and from Stand Independent Standby Assistance 1 Person Assistance Equipment Transfer Assistive Device Front Wheeled Walker Orthotic/Prosthetic Devices or Brace: Yes Transfers Transfer Destination Chair Transfer Technique Stand Step Pivot Transfer Ability Level of Assist Independent Standby Assistance Comments Mobility Comments Moving in room independently after brace donned with FWW Gait Assessment Gait Able to Maintain Weight Bearing Status Yes During Gait Assistive Devices Assistive Device Gait Belt Front Wheeled Walker Orthotic/Prosthetic Devices or Brace: Yes Factors Limiting Gait Function Factors Limiting Gait Function Decreased Activity Tolerance Comments Gait Comments Did well without LOB with FWW PT-Balance Assessment Sitting Balance and Reactions Static Sitting Balance Ability Normal Dynamic Sitting Balance Ability Normal Standing Balance and Reactions Static Standing Balance Ability Normal Dynamic Standing Balance Ability Normal Device Used FWW M5 PT-IP Objective Assessments Start: 08/19/18 15:00 Freq: NEEDED Status: Active Protocol: Document 08/21/18 15:21 IJS (Rec: 08/21/18 15:33 IJS [id number]) Orientation Orientation/Cognition Level of Alertness Alert Orientation Name Age Birthday Month Date Year Day of Week Place Situation Safety Awareness Understands Safety Issues Memory Description No Deficits Noted Gross Range of Motion Upper Extremity ROM Assessment Left Impaired Impairments Brace on left wrist Lower Extremity ROM Assessment Within Functional Limits Strength Upper Extremity Strength Assessment Left Impaired Wrist wrist fracture Coordination Assessment Gross Coordination Gross Coordination WNL Sensation Assessment Sensation Gross Sensation WNL Muscle Tone Muscle Tone WNL Yes M6 PT-IP Treatment Start: 08/19/18 15:00 Freq: NEEDED Status: Active Protocol: Document 08/21/18 15:21 IJS (Rec: 08/21/18 15:33 IJS [id number]) Physical Therapy Treatment Exercises Exercises Ankle Pumps Education Brace Education [place] Equipment Issued Equipment Type and Company He is a member of the [employer] and plans to have all adaptive equipment he needs delivered to his home M7 PT-IP Assessment and Plan Start: 08/19/18 15:00 Freq: NEEDED Status: Active Protocol: Document 08/21/18 15:21 IJS (Rec: 08/21/18 15:33 S [id number]) PT Summary Assessment and Plan Potential Rehabilitation Potential Good Status of Condition at Evaluation Stable Summary Impairments Pain Activity Tolerance Assessment Summary Post injury day #2, had to wait for the brace to be ordered and arrive before could mobilize in prep. for return home Goals Bed Mobility Goal Independent Transfer Goal Independent Gait Goal Independent Frequency of Treatment Frequency Of Treatment Discharge Recommendations To Nursing Amount of Assist Needed 1 Person Assist Discharge Recommendations PT Discharge Recommendations Home Equipment Needed for Home Before FWW Discharge
[2018-08-21] MEDS: IBUPROFEN 600 MG TABLET PO (17:38)
--- NOTE | 2018-08-21 18:24 | PC.NURSE ---
DC note: Scott (Robel) sleeping in recliner from [id number] per his request. Woken by voice, his Ox3 and situation. Tele DC'd. IV to LAC removed, pressure drsg applied, no bleeding observed from site. All DC paperwork & DC instructions reviewed with him. Son not back at hospital until 1744, at that point I gave Son Scott's 6 prescriptions to fill prior to boarding [address]. I notified precision crop manager Cristina of situation, as [facility] said they could not expidite filling these prescriptions due to one being Oxycodone. precision crop manager took patient's son down to our pharmacy to fill prescriptions, pharmacy told Cristina they did not have Oxycodone in stock. Cristina then called [facility] back making them aware of situation, Son took Oxycodone prescription to [facility] to be filled. Son back to crab picker Scott. Son reports that [address] is running an hour & a half late. Son has been given priority boarding pass for [address] [employer] by prior maintenance technician 2nd shift. I helped Scott dress and apply back brace, he is aware to wear this brace when out of bed. Pt wheeled out to ER entrance via wheelchair where left hospital with son in private car.
== END 2018-08-21 18:10 | disposition home or self-care (01) | DRG 552 ==
LOC: ED 23:53 → AC 08-19 00:05
PROVIDERS: Admitting Provider Nurse Practitioner Gerontology; Emergency Provider Emergency Medicine; Visit Provider Nurse Practitioner Gerontology
DX: S32.011A Stable burst fracture of first lumbar vertebra, initial encounter for closed fracture (principal); S32.029A Unspecified fracture of second lumbar vertebra, initial encounter for closed fracture; M25.512 Pain in left shoulder; E87.6 Hypokalemia; F10.20 Alcohol dependence, uncomplicated; S62.002A Unspecified fracture of navicular [scaphoid] bone of left wrist, initial encounter for closed fracture; K76.0 Fatty (change of) liver, not elsewhere classified; W17.89XA Other fall from one level to another, initial encounter; Y93.H2 Activity, gardening and landscaping; Y92.017 Garden or yard in single-family (private) house as the place of occurrence of the external cause
CPT/HCPCS: 29260; 36415; 36591; 70450; 71045; 71260; 72125; 72170; 73030; 73110; 74177; 80048; 80053; 80320; 81003; 81015; 82150; 82550; 83690; 83735; 84484; 85025; 85610; 85730; 86850; 86900; 86901; 93005; 96374; 96376; 97116; 97161; 97165; 97535; 99231; 99252; 99283; 99291; 90715; J1170; J1650; Q9967

== ENCOUNTER → 2020-12-24 14:17 | Outpatient (CLI) | payer OTHER, SELFPAY ==
[2018-08-19 00:44] VITALS: BMI 33.4
[2020-12-24 18:56] LABS: Add Manual Diff / Slide Review NO; Basophils Absolute Auto 100 /uL (0-100); Basophils Percent Auto 0.7 % (0-2); Eosinophils Absolute Auto 200 /uL (0-450); Eosinophils Percent Auto 1.9 % (2-4); Hematocrit 44.5 % (41-53); Hemoglobin 15.1 g/dL (13.5-17.5); Lymphocytes Absolute Auto 2900 /uL (1100-4500); Lymphocytes Percent Auto 31.5 % (25-40); Mean Corpuscular HGB Conc 33.9 % (30-36); Mean Corpuscular Volume 106.1 fL (80-100); Monocytes Absolute Auto 700 /uL (0-900); Monocytes Percent Auto 7.9 % (3-14); Neutrophils Absolute Auto 5300 /uL (1500-7000); Platelet Count 318 X10^3/uL (150-400); Red Blood Cell Count 4.19 X10^6/uL (4.5-5.9); Red Cell Distribution Width 14.4 % (11.6-14.8); White Blood Cell Count 9.1 X10^3/uL (4.5-11.0)
[2020-12-24 19:30] LABS: Alanine Aminotransferase 66 IU/L (<50); Albumin 3.8 g/dL (3.5-5.0); Albumin Globulin Ratio 1.4 (1.0-2.8); Alkaline Phosphatase 103 U/L (38-126); Aspartate Aminotransferase 53 IU/L (17-59); BUN Creatinine Ratio 13.6 (6-22); Bilirubin Total 0.7 mg/dL (0.2-1.3); Blood Urea Nitrogen 14 mg/dL (9-20); Calcium 9.4 mg/dL (8.4-10.2); Carbon Dioxide 30 mmol/L (22-32); Chloride 103 mmol/L (98-107); Estimated Glomerular Filt Rate > 60.0 mL/min (>60); Globulin 2.8 g/dL (1.7-4.1); Glucose 97 mg/dL (70-100); HEMOLYSIS < 15 (0-50); Potassium 3.6 mmol/L (3.4-5.1); Sodium 141 mmol/L (137-145); Total Protein 6.6 g/dL (6.3-8.2)
[2020-12-24 20:02] LABS: TSH w/ Reflex to FT4 2.29 uIU/mL (0.47-4.68)
[2020-12-24 20:10] LABS: Hepatitis B Surface Antigen NEGATIVE s/c (NEGATIVE)
[2020-12-24 20:15] LABS: Erythrocyte Sedimentation Rate 3 MM/HR (0-15)
[2020-12-24 20:25] LABS: HIV 1 & 2 Ab/Ag 4th Gen Combo NEGATIVE (NEGATIVE); Hep C Virus Ab w/Reflex Quant NEGATIVE s/c (NEGATIVE)
== END ==
PROVIDERS: PCP Family Medicine; Visit Provider Family Medicine
DX: R21 Rash and other nonspecific skin eruption (principal)
CPT/HCPCS: 80053; 84443; 85025; 85651; 86803; 87340; 87389

== ENCOUNTER 2021-01-04 09:30 | Emergency (ER) | payer OTHER, SELFPAY ==
[2020-12-30 09:07] VITALS: BMI 33.4
[2021-01-04 09:42] VITALS: BP 176/88; PULSE 97; RESP 17; TEMP 36.8; O2SAT 99; BMI 33.7
--- NOTE | 2021-01-04 09:43 | ED.SKABFB ---
HPI - Skin/Abscess/Foreign Bdy General Chief complaint: Skin/Abscess/Foreign Body Stated complaint: Entire body rash Time Seen by Provider: 01/04/21 09:43 History of Present Illness HPI narrative: 55-year-old male nonsmoker with a history of nonspecific dermatitis and psoriasis presents with a chief complaint of a widespread, if not full body painful rash that has been present for many months. He states it started on his back and has spread around to his chest and face as well as extremities. He has seen multiple providers and has had treatments including antihistamines and steroids with little to no relief. He denies any systemic symptoms such as fever chills. He denies any recent antibiotics. His PCP did biopsy relatively recently without any results as of yet. Related Data Previous Rx's Medication Instructions Recorded betamethasone valerate 0.1 % 1 applic TOPICAL BID PRN #15 g 12/03/20 topical cream prednisone 20 mg tablet 20 mg PO DAILY #35 tab 12/03/20 clotrimazole 1 % topical cream 1 applic TOPICAL BID PRN #15 g 12/18/20 hydroxyzine HCl 25 mg tablet 50 mg PO TID PRN #60 tab 12/18/20 Allergies Allergy/AdvReac Type Severity Reaction Status Date / Time No Known Drug Allergies Allergy Verified 01/04/21 09:45 Review of Systems Review of Systems Narrative: GENERAL: Denies chills, fatigue, malaise, fever, sweats. HEENT: Denies sinus pain, ear pain, sore throat, difficulty swallowing, dizziness. RESPIRATORY: Denies dyspnea, cough, wheezing, hemoptysis, sputum. CARDIOVASCULAR: Denies chest pain, palpitations, orthopnea, edema, GASTROINTESTINAL: Denies nausea, vomiting, abdominal pain, diarrhea, constipation, melena. : Denies dysuria, frequency, incontinence, hematuria, urinary retention. MUSCULOSKELETAL: denies weakness, joint pain, or bony pain SKIN: see HPI NEUROLOGIC: Denies weakness, headache, numbness, change in speech, confusion, seizures, incoordination. PSYCHIATRIC: No concerning psychosocial issues. 12 point review of systems is negative except for those stated above Patient History Medical History Alcohol dependence Dermatitis Marijuana use, continuous Nummular eczema Osteoarthritis, multiple sites Presence of mandibular implant Psoriasis Rash Surgical History S/P appendectomy Family History Mother Heart disease Ovarian cancer Breast cancer Father No known health problems Brother Heart disease Myocardial infarction Brother Gunshot injury Social History household members: none Smoking Status: Never smoker alcohol intake: current Smoking Status: Never smoker alcohol intake frequency: a few times a week Substance Use Type: marijuana Exam Narrative Exam Narrative: GENERAL: [55] year old patient appears stated age. Well-developed patient, in mild distress. HEAD: Atraumatic. Normocephalic. EYES: Pupils equal round and reactive. Extraocular motions intact. No scleral icterus. No injection or drainage. ENT: Nose without bleeding, purulent drainage. Throat without erythema, tonsillar hypertrophy or exudate. Airway patent. NECK: Trachea midline. Non tender CARDIOVASCULAR: Regular rate and rhythm without murmurs, gallops, or rubs. RESPIRATORY: Clear to auscultation. Breath sounds equal bilaterally. No wheezes, rales, or rhonchi. GASTROINTESTINAL: Abdomen soft, non-tender, nondistended. EXTREMITIES: No edema or joint tenderness. BACK: Nontender without deformity or crepitance. No flank tenderness. NEURO: AOx3. SKIN: Widespread erythematous, blanching rash, well demarcated at the edges, perhaps coalescing lesions. Very minimal elevation, negative Nikolsky sign, no oral or mucosal involvement, no vesicles, fluctuation or drainage noted. Largely on the trunk and face with lesions noted on extremities as well Initial Vital Signs Initial Vital Signs: Vital Signs Temperature 98.2 F 01/04/21 09:42 Pulse Rate 97 H 01/04/21 09:42 Respiratory Rate 17 01/04/21 09:42 Blood Pressure 176/88 H 01/04/21 09:42 Pulse Oximetry 99 01/04/21 09:42 Course Orders Ordered: ED Orders 01/04/21 09:41 C-Reactive Protein Quant Stat Complete Blood Count AUTO DIFF Stat Comprehensive Metabolic Panel Stat Erythrocyte Sedimentation Rate Stat Discontinued Medications Sodium Chloride (Normal Saline 0.9%) 1,000 mls @ 1,000 mls/hr IV BOLUS ONE Stop: 01/04/21 11:58 Last Infusion: 01/04/21 12:24 Dose: 0 mls/hr Documented by: Admin: 01/04/21 11:00 Dose: 1,000 mls/hr Documented by: REMY Vital Signs Vital signs: Vital Signs - 8 hr 01/04/21 09:42 01/04/21 11:20 01/04/21 11:30 Temperature 98.2 F Pulse Rate 97 H 106 H 105 H Respiratory Rate 17 Blood Pressure 176/88 H 126/73 126/73 Pulse Oximetry 99 98 97 01/04/21 12:00 Temperature Pulse Rate 106 H Respiratory Rate Blood Pressure 125/67 Pulse Oximetry 96 MDM - Skin/Abscess/Foreign Bdy Lab Data Result diagrams: 01/04/21 09:41 01/04/21 09:41 Labs: Lab Results 01/04/21 01/04/21 Range/Units 09:41 09:41 WBC 9.1 (4.5-11.0) X10^3/uL RBC 4.11 L (4.5-5.9) X10^6/uL Hgb 14.6 (13.5-17.5) g/dL Hct 42.7 (41-53) % MCV 103.9 H (80-100) fL MCH 35.5 H (26-34) PG MCHC 34.1 (30-36) % RDW 14.0 (11.6-14.8) % Plt Count 468 H (150-400) X10^3/uL Neut % (Auto) 66.1 (50-75) % Lymph % (Auto) 20.0 L (25-40) % [place] % (Auto) 9.5 (3-14) % Eos % (Auto) 3.8 (2-4) % Baso % (Auto) 0.6 (0-2) % Neut # (Auto) 6100 (0074-6728) /uL Lymph # (Auto) 1800 (7057-3154) /uL [place] # (Auto) 900 (0-900) /uL Eos # (Auto) 400 (0-450) /uL Baso # (Auto) 100 (0-100) /uL ESR 11 (0-15) MM/HR Sodium 137 (137-145) mmol/L Potassium 3.9 (3.4-5.1) mmol/L Chloride 104 (98-107) mmol/L Carbon Dioxide 26 (22-32) mmol/L BUN 8 L (9-20) mg/dL Creatinine 0.91 (0.66-1.25) mg/dL Estimated GFR > 60.0 (>60) mL/min BUN/Creatinine Ratio 8.8 (6-22) Glucose 132 H (70-100) mg/dL Calcium 8.5 (8.4-10.2) mg/dL Total Bilirubin 0.5 (0.2-1.3) mg/dL AST 34 (17-59) IU/L ALT 26 (<50) IU/L Alkaline Phosphatase 95 (38-126) U/L C-Reactive Protein 3.7 H (<1.0) mg/dL Total Protein 6.6 (6.3-8.2) g/dL Albumin 3.7 (3.5-5.0) g/dL Globulin 2.9 (1.7-4.1) g/dL Albumin/Globulin Ratio 1.3 (1.0-2.8) MDM Narrative Medical decision making narrative: Patient with chronic, although worsening rash over the past many months. He has no systemic symptoms, no mucosal involvement and no reported new medications. His dermatology office has been contacted and they will cm tomorrow, they instructed me to tell him to expect a call today with instructions. Patient has been given extensive return precautions and questions have been answered to his apparent satisfaction Discharge Plan Departure Patient Disposition: Home Clinical Impression: Rash and nonspecific skin eruption Activity Restrictions/Additional Instructions: *You have been diagnosed with [undifferentiated widespread rash] *What to do: *Please continue to take your regular medications as directed. [ ] New medication prescriptions sent to your pharmacy: [ ] [ ] New medication written as a paper prescription [ x] No new medications given * as we discussed, the dermatology clinic will call you and plan to get you in tomorrow *Return to Emergency Department if you should have any new, worsening or concerning symptoms, such as [fever greater than 101 F, shaking chills, worsening pain, persistent vomiting or other bothersome symptoms] Prescriptions: No Action prednisone 20 mg tablet 20 mg PO DAILY Qty: 35 RF: 0 betamethasone valerate 0.1 % cream 1 applic topical BID PRN (Reason: rash) Qty: 15 RF: 1 hydroxyzine HCl 25 mg tablet 50 mg PO TID PRN (Reason: itching) Qty: 60 RF: 1 clotrimazole 1 % cream 1 applic topical BID PRN (Reason: rash) Qty: 15 RF: 1 Referrals: Kashmir Blount, [Primary Care Provider] -
[2021-01-04 09:59] LABS: Add Manual Diff / Slide Review NO; Basophils Absolute Auto 100 /uL (0-100); Basophils Percent Auto 0.6 % (0-2); Eosinophils Absolute Auto 400 /uL (0-450); Eosinophils Percent Auto 3.8 % (2-4); Hematocrit 42.7 % (41-53); Hemoglobin 14.6 g/dL (13.5-17.5); Lymphocytes Absolute Auto 1800 /uL (1100-4500); Mean Corpuscular HGB Conc 34.1 % (30-36); Mean Corpuscular Hemoglobin 35.5 PG (26-34); Mean Corpuscular Volume 103.9 fL (80-100); Monocytes Absolute Auto 900 /uL (0-900); Monocytes Percent Auto 9.5 % (3-14); Neutrophils Absolute Auto 6100 /uL (1500-7000); Neutrophils Percent Auto 66.1 % (50-75); Platelet Count 468 X10^3/uL (150-400); Red Blood Cell Count 4.11 X10^6/uL (4.5-5.9); White Blood Cell Count 9.1 X10^3/uL (4.5-11.0)
[2021-01-04 10:07] LABS: Alanine Aminotransferase 26 IU/L (<50); Albumin 3.7 g/dL (3.5-5.0); Albumin Globulin Ratio 1.3 (1.0-2.8); Alkaline Phosphatase 95 U/L (38-126); Aspartate Aminotransferase 34 IU/L (17-59); BUN Creatinine Ratio 8.8 (6-22); Bilirubin Total 0.5 mg/dL (0.2-1.3); Blood Urea Nitrogen 8 mg/dL (9-20); C-Reactive Protein Quant 3.7 mg/dL (<1.0); Calcium 8.5 mg/dL (8.4-10.2); Carbon Dioxide 26 mmol/L (22-32); Chloride 104 mmol/L (98-107); Estimated Glomerular Filt Rate > 60.0 mL/min (>60); Globulin 2.9 g/dL (1.7-4.1); Glucose 132 mg/dL (70-100); HEMOLYSIS < 15 (0-50); Potassium 3.9 mmol/L (3.4-5.1); Sodium 137 mmol/L (137-145); Total Protein 6.6 g/dL (6.3-8.2)
[2021-01-04 10:28] LABS: Erythrocyte Sedimentation Rate 11 MM/HR (0-15)
[2021-01-04] MEDS: SODIUM CHLORIDE 0.9% 1,000 ML 1000 ML IV (11:00)
[2021-01-04 11:20] VITALS: BP 126/73; PULSE 106; O2SAT 98
[2021-01-04 11:30] VITALS: BP 126/73; PULSE 105; O2SAT 97
[2021-01-04 12:00] VITALS: BP 125/67; PULSE 106; O2SAT 96
== END 2021-01-04 12:28 | disposition home or self-care (01) ==
PROVIDERS: Emergency Provider Emergency Medicine; PCP Family Medicine
DX: R21 Rash and other nonspecific skin eruption (principal)
CPT/HCPCS: 80053; 85025; 85651; 86140; 96360; 99283; 99284

== ENCOUNTER 2022-02-11 11:48 | Emergency (ER) | payer OTHER, SELFPAY ==
[2020-12-30 09:07] VITALS: BMI 33.4
[2022-02-11 11:55] VITALS: BP 171/100; PULSE 77; RESP 17; TEMP 37.1; O2SAT 100; BMI 33.0
--- NOTE | 2022-02-11 12:29 | DI.RAD.S_ITS ---
PROCEDURE: XR LUMBAR SPINE 2-3V INDICATIONS: upper lumbar pain w/bilateral muscle spasms, bonytenderness TECHNIQUE: 3 views of the lumbar spine were acquired. COMPARISON: [facility] ([place]), CR, XR THORACIC SPINE 3V, 02/07/2022, 14:31. FINDINGS: Bones: 5 cul-uva-hxvyven vertebrae are present. There is straightening of normal lumbar lordosis. 2-3 millimeter retrolisthesis of L2 on L3 is seen. Chronic appearing anterior wedge compression deformity at L1 and L2 levels are seen with up to 20 percent loss of L2 vertebral body height anteriorly. These were described in prior CT of chest, abdomen and pelvis study dated 08/18/2018 No suspicious bony lesions. Soft tissues: Overlying bowel gas pattern is normal. No suspicious soft tissue calcifications. IMPRESSION: Chronic appearing anterior wedge compression deformities at L1 and L2 levels. No definite acute compression fracture. Grade 1 retrolisthesis at L2-3 level. 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 Dictated by: Akin Ang M.D. on 02/11/2022 at 12:48 Approved by: Akin Ang M.D. on 02/11/2022 at 12:50
--- NOTE | 2022-02-11 12:42 | ED.BACK ---
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 Patient saw his primary care provider at the [facility] who prescribed for him ibuprofen, muscle relaxers, and he presents today with ongoing stiffness and tenderness, feels like it is worse in the morning. He states that he can not complete his duties well due to the pain, his pain has not been controlled on 800 mg of ibuprofen, and Flexeril, and he states he is not able to do his normal duties and his pain has been severe. States the at the clinic he had x-rays completed without evidence of injury. Related Data Previous Rx's Medication Instructions Recorded betamethasone valerate 0.1 % 1 applic topical BID PRN rash #15 12/03/20 topical cream grams clobetasol 0.05 % topical cream 1 applic topical BID 2 weeks #30 01/04/21 grams hydroxyzine HCl 25 mg tablet 50 mg PO TID PRN itching #60 tabs 01/04/21 cyclobenzaprine 10 mg tablet 10 mg PO TID PRN painful muscle 02/08/22 spasm #15 tabs ibuprofen 800 mg tablet 800 mg PO TID PRN pain #30 tabs 02/08/22 acetaminophen 500 mg tablet 1,000 mg PO Q6H PRN pain #100 tabs 02/11/22 (Tylenol Extra Strength) methocarbamol 750 mg tablet 750 mg PO Q8H PRN spasm #20 tabs 02/11/22 prednisone 20 mg tablet 40 mg PO DAILY 5 days #10 tabs 02/11/22 Allergies Allergy/AdvReac Type Severity Reaction Status Date / Time No Known Drug Allergies Allergy Verified 02/11/22 12:00 Review of Systems <STUART Castaneda - Last Filed: 02/11/22 15:09> Review of Systems ROS Unobtainable: All systems reviewed & are unremarkable except as noted in HPI and below Patient History <STUART Castaneda - Last Filed: 02/11/22 15:09> Medical History Alcohol dependence Marijuana use, continuous Nummular eczema Osteoarthritis, multiple sites Presence of mandibular implant Psoriasis Thoracic back pain Surgical History S/P appendectomy Family History Mother Heart disease Ovarian cancer Breast cancer Father No known health problems Brother Heart disease Myocardial infarction Brother Gunshot injury Social History household members: none Smoking Status: Never smoker alcohol intake: current Smoking Status: Never smoker alcohol intake frequency: a few times a week Substance Use Type: marijuana Exam <STUART Castaneda - Last Filed: 02/11/22 15:09> Narrative Exam Narrative: Reviewed vitals signs and nursing notes. General: cooperative, appears uncomfortable and tense, sitting up or standing for comfort , well groomed, afebrile HEENT: symmetrical facial expressions, moist mucous membranes Cardiovascular: regular rate and rhythm, no peripheral edema, warm extremities Respiratory: normal effort, able to speak in complete sentences, without wheezing, stridor, or abnormal breath sounds. No retractions or tachypnea. GI: abdomen soft, nontender to palpation, nondistended, without masses, rebound tenderness or exquisite tenderness with exam. MSK: moves all extremities, neurovascularly intact, no weakness, normal tone tenderness over his upper lumbar spine, muscle tension bilaterally without step-off, crepitus, or lower extremity weakness, patient has full range of motion and is ambulatory. Skin: brisk capillary refill, without pallor or erythema Neuro: normal speech and cognition, A&O x3, ambulatory, clear speech Psych: mental status is grossly normal, congruent mood, normal affect, pleasant and cooperative Initial Vital Signs Initial Vital Signs: Vital Signs Temperature 98.7 F 02/11/22 11:55 Pulse Rate 77 02/11/22 11:55 Respiratory Rate 17 02/11/22 11:55 Blood Pressure 171/100 H 02/11/22 11:55 Pulse Oximetry 100 02/11/22 11:55 Oxygen Delivery Method 02/11/22 11:55 <David Draper DO - Last Filed: 02/11/22 15:16> Initial Vital Signs Initial Vital Signs: Vital Signs Temperature 98.7 F 02/11/22 11:55 Pulse Rate 77 02/11/22 11:55 Respiratory Rate 17 02/11/22 11:55 Blood Pressure 171/100 H 02/11/22 11:55 Pulse Oximetry 100 02/11/22 11:55 Oxygen Delivery Method 02/11/22 11:55 Course <STUART Castaneda - Last Filed: 02/11/22 15:09> Course Course Narrative: During his physical exam, patient was tender to his upper lumbar spine around L1 and 2 with prior history of compression fracture of L1 into, patient was barely able to walk to x-ray Additional Information: [employer] Claim [id number], DOI 02/07/2022, Back injury. Patient reports he slipped on ice Orders Ordered: ED Orders 02/11/22 12:29 XR lumbar spine 2-3V Stat 02/11/22 12:46 CT lumbar spine wo con Stat Discontinued Medications Hydromorphone HCl (Hydromorphone 1 Mg Inj) 1 mg IM NOW ONE Stop: 02/11/22 12:47 Last Admin: 02/11/22 12:52 Dose: 1 mg Documented By: CHARITY Ketorolac Tromethamine (Ketorolac 30 Mg/Ml Vial) 30 mg IM NOW ONE Stop: 02/11/22 12:30 Last Admin: 02/11/22 12:52 Dose: 30 mg Documented By: CHARITY Methocarbamol (Methocarbamol 500 Mg Tablet) 750 mg PO NOW ONE Stop: 02/11/22 12:30 Last Admin: 02/11/22 12:51 Dose: 750 mg Documented By: CHARITY Oxycodone/Acetaminophen (Oxycodone/Acetaminophen 5/325 Tablet) 1 tab PO NOW ONE Stop: 02/11/22 12:30 Last Admin: 02/11/22 13:52 Dose: Not Given Documented By: REGULO Prednisone (Prednisone 20 Mg Tablet) 60 mg PO NOW ONE Stop: 02/11/22 12:30 Last Admin: 02/11/22 12:59 Dose: Not Given Documented By: CHARITY Prednisone (Prednisone 20 Mg Tablet) 40 mg PO NOW ONE Stop: 02/11/22 13:46 Last Admin: 02/11/22 13:49 Dose: 40 mg Documented By: AT Vital Signs Vital signs: Vital Signs - 8 hr 02/11/22 11:55 02/11/22 13:50 Temperature 98.7 F Pulse Rate 77 64 Respiratory Rate 17 18 Blood Pressure 171/100 H 166/92 H Pulse Oximetry 100 98 Oxygen Delivery Method Room Air Room Air <David Draper, DO - Last Filed: 02/11/22 15:16> Orders Ordered: ED Orders 02/11/22 12:29 XR lumbar spine 2-3V Stat 02/11/22 12:46 CT lumbar spine wo con Stat Discontinued Medications Hydromorphone HCl (Hydromorphone 1 Mg Inj) 1 mg IM NOW ONE Stop: 02/11/22 12:47 Last Admin: 02/11/22 12:52 Dose: 1 mg Documented By: CHARITY Ketorolac Tromethamine (Ketorolac 30 Mg/Ml Vial) 30 mg IM NOW ONE Stop: 02/11/22 12:30 Last Admin: 02/11/22 12:52 Dose: 30 mg Documented By: CHARITY Methocarbamol (Methocarbamol 500 Mg Tablet) 750 mg PO NOW ONE Stop: 02/11/22 12:30 Last Admin: 02/11/22 12:51 Dose: 750 mg Documented By: CHARITY Oxycodone/Acetaminophen (Oxycodone/Acetaminophen 5/325 Tablet) 1 tab PO NOW ONE Stop: 02/11/22 12:30 Last Admin: 02/11/22 13:52 Dose: Not Given Documented By: REGULO Prednisone (Prednisone 20 Mg Tablet) 60 mg PO NOW ONE Stop: 02/11/22 12:30 Last Admin: 02/11/22 12:59 Dose: Not Given Documented By: CHARITY Prednisone (Prednisone 20 Mg Tablet) 40 mg PO NOW ONE Stop: 02/11/22 13:46 Last Admin: 02/11/22 13:49 Dose: 40 mg Documented By: AT Vital Signs Vital signs: Vital Signs - 8 hr 02/11/22 11:55 02/11/22 13:50 Temperature 98.7 F Pulse Rate 77 64 Respiratory Rate 17 18 Blood Pressure 171/100 H 166/92 H Pulse Oximetry 100 98 Oxygen Delivery Method Room Air Room Air MDM - Back Pain/Injury <Sally Enriquez Malinijannet, [facility] - Last Filed: 02/11/22 15:09> Imaging Data Extremity x-ray #1: Radiologist's Impression: PROCEDURE:? XR LUMBAR SPINE 2-3V ? INDICATIONS:? upper lumbar pain w/bilateral muscle spasms, bonytenderness ? TECHNIQUE:? 3 views of the lumbar spine were acquired.? ? COMPARISON:? [facility] ([facility]), CR, XR THORACIC SPINE 3V, 02/07/2022, 14:31. ? FINDINGS:? ? Bones:? 5 [id number] vertebrae are present.? There is straightening of normal lumbar lordosis.? 2-3 millimeter retrolisthesis of L2 on L3 is seen.? Chronic appearing anterior wedge compression deformity at L1 and L2 levels are seen with up to 20 percent loss of L2 vertebral body height anteriorly.? These were described in prior CT of chest, abdomen and pelvis study dated 08/18/2018 No suspicious bony lesions.? ? Soft tissues:? Overlying bowel gas pattern is normal.? No suspicious soft tissue calcifications.? ? ? IMPRESSION:? Chronic appearing anterior wedge compression deformities at L1 and L2 levels.? No definite acute compression fracture.? Grade 1 retrolisthesis at L2-3 level.? 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 ? ? Dictated by: Akin Ang M.D. on 02/11/2022 at 12:48 ? ? Approved by: Akin Ang M.D. on 02/11/2022 at 12:50 ? Extremity x-ray #2: Radiologist's Impression: PROCEDURE:? XR THORACIC SPINE 3V ? INDICATIONS:? fall flat on back, short of breath ? TECHNIQUE:? 3 views of the thoracic spine were acquired.? ? COMPARISON:? [facility] ([facility]), CR, XR RIBS LT MIN 3V W CXR1V, 02/07/2022, 14:31. ? FINDINGS:? ? Bones:? No fractures or dislocations.? No suspicious bony lesions.? 12 pairs of ribs are noted, and appear intact where visualized.? There are multilevel degenerative changes.? No vertebral body height loss.? Anterior osteophytes are seen at multiple levels. ? Soft tissues:? No paravertebral stripe thickening.? ? ? IMPRESSION:? Multilevel degenerative changes of the thoracic spine without acute abnormality. ? ? Dictated by: Devaughn Tuttle M.D. on 02/07/2022 at 16:34 ? ? Approved by: Devaughn Tuttle M.D. on 02/07/2022 at 16:36 ? ct lumbar spine: Radiologist's Impression: PROCEDURE:? CT LUMBAR SPINE WO CON ? INDICATIONS:? wedge compression fracture ? TECHNIQUE:? Noncontrast 3 mm thick sections acquired from the T12 level to the sacrum.? Sagittal and coronal reformats were constructed.? For radiation dose reduction, the following was used:? automated exposure control.? ? COMPARISON:? [facility], CR, XR LUMBAR SPINE 2-3V, 02/11/2022, 12:33.? [facility], CT, CT CHEST ABD PEL W CON, 08/18/2018, 20:13. ? FINDINGS:? Image quality:? Excellent.? ? Bones:? There is normal bony alignment.? No acute vertebral body compression fractures.? No suspicious lytic or blastic bony lesions.? No pars defects.? ? The comparison plain films from earlier same day show L1-L2 mild wedge compression fractures, which were acute in appearance on prior CT scanning from 08/18/18.? There has been interval healing with anterior longitudinal ligament region osseous bridging between T12, L1 and L2.? Degenerative disc height reduction is present along the thoracolumbar junction and lumbosacral spine, chronic in appearance, and there is slight grade 1 retrolisthesis of L2 on L3, by approximately 3-4 mm.? ? ? Soft tissues:? No retroperitoneal masses or hematomas.? Visualized aorta is normal in caliber.? ? ? IMPRESSION:? Chronic wedge compression fractures L1 and L2, present on acute trauma plain film imaging from August of 2018.? Degenerative slight grade 1 retrolisthesis of L2 on L3, also seen by plain film imaging same day.? No acute trauma found. ? ? Dictated by: Gamal Pelayo M.D. on 02/11/2022 at 13:26 ? ? Approved by: Gamal Pelayo M.D. on 02/11/2022 at 13:31 ? [facility] Narrative Medical decision making narrative: This is a 56-year-old male who presents to the emergency department complaining of acute on chronic upper lumbar/thoracic pain without acute changes since his images that were obtained on 02/07/2022. Patient has chronic wedge appearing compression fractures of L1 and 2 present on acute trauma plain film imaging from August of 2018 without acute abnormality, degenerative grade 1 retrolisthesis thesis of L2 on L3 was also seen by plain film imaging that day, no acute changes were visible on CT today, patient had a lumbar spine x-ray added on after he complained of pain over this region during my exam. His thoracic x-rays negative for acute abnormality as well. Ribs x-ray showed a normal PA view of chest and left ribs on 02/07/2022. Patient presents with 6 days of worsening bilateral upper lumbar back pain, without recent trauma, and is afebrile. Suspect likely musculoskeletal etiology, pt is nontoxic appearing with no overt risk factors for epidural hematoma or abscess, caudal equina, and has a nonfocal neuro exam. Spine was tender to palpation, pt is ambulatory, without new weakness. Considered nephrolithiasis/pyelonephritis, epidural abscess/hematoma, ligamental injury, paraspinal or other muscular strain, chronic pain, osteoarthritis, disk injury/herniation, degenerative disease, radiculopathy, and critical cord compression. Pt is neurovascularly intact distally, afebrile, without immunosuppression or evidence of infection, peritoneal signs, hypertensive crisis, incontinence, meningeal signs, or abdominal pain with low suspicion for AAA. Without findings concerning for caudal equina, transverse myelitis, spinal vascular malformation, osteomyelitis, degenerative myelopathy, or cord infarction. Patient has not followed up for a referral to physical therapy and is on muscle relaxers and anti-inflammatories without improved symptom, I prescribed for him a course of prednisone for acute on chronic flare lumbar pain. Muscle relaxers, and encouraged him to follow-up with his PCP. Patient has a history of psoriasis, differential includes psoriatic arthritis and arthritic pain related to degenerative changes of his spine. Discharge Plan Departure Patient Disposition: Home Clinical Impression: Lumbar compression fracture Qualifiers: Encounter type: sequela Lumbar vertebra fracture level: L1 Qualified Code(s): S32.010S - Wedge compression fracture of first lumbar vertebra, sequela Compression fracture of L2 Qualifiers: Encounter type: sequela Qualified Code(s): S32.020S - Wedge compression fracture of second lumbar vertebra, sequela Instructions: DI for Back Spasm, DI for Muscle Spasm Activity Restrictions/Additional Instructions: *You have been diagnosed with chronic wedge compression fractures of L1 and L2 without new changes or traumatic injury found in your lumbar, thoracic spine and ribs today. Please follow-up with Rebeca or at the clinic for a referral to physical therapy, if your medications are inadequate, please ask for referral to pain management for additional pain medication. Please take the steroid medication, this will help you with the inflammation and take your ibuprofen and steroid with food and water. Please stay hydrated, relax your activity level and tried to rest for a few days. *What to do: *Please continue to take your regular medications as directed. [x ] New medication prescriptions sent to your pharmacy: [Rays ] [ ] New medication written as a paper prescription [ ] No new medications given *Please follow up with your primary care provider in 2-3 days, call for an appointment. Let them know you were seen in the Emergency Department and that we asked that you be seen for follow-up. We will electronically transmit a record of today's note if your PCP is in our system *If you do not have a primary care provider please contact [phone] to establish care with one of the [facility] primary care providers. *Return to Emergency Department if you should have any new, worsening, or concerning symptoms, such as [fever greater than 101F, chills, worsening pain, persistent vomiting or other bothersome symptoms]. Prescriptions: New methocarbamol 750 mg tablet 750 mg PO Q8H PRN (Reason: spasm) Qty: 20 0RF acetaminophen [Tylenol Extra Strength] 500 mg tablet 1,000 mg PO Q6H PRN (Reason: pain) Qty: 100 0RF prednisone 20 mg tablet 40 mg PO DAILY 5 Days Qty: 10 0RF No Action cyclobenzaprine 10 mg tablet 10 mg PO TID PRN (Reason: painful muscle spasm) Qty: 15 0RF Rx Instructions: Do not drive while taking this medication ibuprofen 800 mg tablet 800 mg PO TID PRN (Reason: pain) Qty: 30 0RF Rx Instructions: Take this medication with food and a full glass of water. Avoid alcohol. betamethasone valerate 0.1 % cream 1 applic topical BID PRN (Reason: rash) Qty: 15 1RF clobetasol 0.05 % cream 1 applic topical BID 14 Days Qty: 30 1RF hydroxyzine HCl 25 mg tablet 50 mg PO TID PRN (Reason: itching) Qty: 60 1RF Referrals: Rebeca Diaz PA-C [[employer] Clerk] - (Please follow-up and ask for referral to physical therapy) Kashmir Blount DO [Primary Care Provider] - Visit Report Forms: Patient Portal/API <David Draper DO - Last Filed: 02/11/22 15:16> [facility]: Dr Draper Co-Sign Statement: I was available for consultation during this patient's emergency department visit. This chart is signed by myself for administrative purposes only. I did not have direct contact with this patient during this visit. They were seen independently by the APC.
--- NOTE | 2022-02-11 12:46 | DI.CT.S_ITS ---
PROCEDURE: CT LUMBAR SPINE WO CON INDICATIONS: wedge compression fracture TECHNIQUE: Noncontrast 3 mm thick sections acquired from the T12 level to the sacrum. Sagittal and coronal reformats were constructed. For radiation dose reduction, the following was used: automated exposure control. COMPARISON: [facility], CR, XR LUMBAR SPINE 2-3V, 02/11/2022, 12:33. [facility], CT, CT CHEST ABD PEL W CON, 08/18/2018, 20:13. FINDINGS: Image quality: Excellent. Bones: There is normal bony alignment. No acute vertebral body compression fractures. No suspicious lytic or blastic bony lesions. No pars defects. The comparison plain films from earlier same day show L1-L2 mild wedge compression fractures, which were acute in appearance on prior CT scanning from 08/18/18. There has been interval healing with anterior longitudinal ligament region osseous bridging between T12, L1 and L2. Degenerative disc height reduction is present along the thoracolumbar junction and lumbosacral spine, chronic in appearance, and there is slight grade 1 retrolisthesis of L2 on L3, by approximately 3-4 mm. Soft tissues: No retroperitoneal masses or hematomas. Visualized aorta is normal in caliber. IMPRESSION: Chronic wedge compression fractures L1 and L2, present on acute trauma plain film imaging from August of 2018. Degenerative slight grade 1 retrolisthesis of L2 on L3, also seen by plain film imaging same day. No acute trauma found. Dictated by: Gamal Pelayo M.D. on 02/11/2022 at 13:26 Approved by: Gamal Pelayo M.D. on 02/11/2022 at 13:31
[2022-02-11] MEDS: methocarbamoL 500 MG TABLET 750 MG PO (12:51)
[2022-02-11] MEDS: HYDROMORPHONE 1 MG INJ IM (12:52)
[2022-02-11] MEDS: KETOROLAC 30 MG/ML VIAL IM (12:52)
[2022-02-11] MEDS: predniSONE 20 MG TABLET 40 MG PO (13:49)
[2022-02-11 13:50] VITALS: BP 166/92; PULSE 64; RESP 18; O2SAT 98
== END 2022-02-11 13:57 | disposition home or self-care (01) ==
PROVIDERS: Emergency Provider Nurse Practitioner Critical Care Medicine; PCP Family Medicine
DX: S32.010S Wedge compression fracture of first lumbar vertebra, sequela (principal); S32.020S Wedge compression fracture of second lumbar vertebra, sequela; X58.XXXS Exposure to other specified factors, sequela; W18.30XA Fall on same level, unspecified, initial encounter; Y99.0 Civilian activity done for income or pay
CPT/HCPCS: 72100; 72131; 96372; 99284; J1170; J1885